=== PATIENT | female | born 1975 | race Two or more races ===

== ENCOUNTER 2020-11-21 11:54 | Inpatient (IN) | payer OTHER ==
[~2020-11-21] VITALS: Ht 165.1 cm; Wt 50.3 kg
--- NOTE | 2020-11-21 12:16 | NUR ---
RT Pt was brought into ER trached and on mechanical ventilation with noted settings. Vent is plugged into red outlet with spare trach by bedside. No SOB or respiratory distress noted at this time. Addendum: 11/21/20 at 1434 by DEVAN PEARSON RT Amended: Links added.
--- NOTE | 2020-11-21 12:42 | NUR ---
zhane, from HD center, came due to hypotension and c/o abd pain. PT AAOX3, VSS. PLACED ON FUEL AGENT, SB. PLACED ON VENT, PT BRANDI WELL. NO RESP DISTRESS NOTED. PT SEEN & EVAL'D BY DR. HOANG. WILL CONT TO MONITOR.
[2020-11-21 13:10] LABS: BASOPHILS % (AUTO) 0.1 % (0.0-2.0); HEMATOCRIT 25 % (33-45); HEMOGLOBIN 8.3 g/dL (11.5-14.8); LYMPHOCYTES # (AUTO) 0.4 K/uL (0.8-4.8); LYMPHOCYTES % (AUTO) 6.2 % (20.0-44.0); MEAN CORPUSCULAR HGB CONC 34 g/dl (31.0-36.0); MEAN CORPUSCULAR VOLUME 97 fL (82-100); MONOCYTES # (AUTO) 0.3 K/uL (0.1-1.30); MONOCYTES % (AUTO) 4.7 % (2.0-12.0); NEUTROPHILS # (AUTO) 5.6 K/uL (1.8-8.9); PLATELET COUNT (AUTO) 119 K/uL (150-450); RED BLOOD CELL COUNT(AUTO) 2.56 MIL/uL (4.0-5.2); WHITE BLOOD COUNT (AUTO) 6.3 K/uL (4.3-11.0)
[2020-11-21] MEDS ORDERED: FOLI0.8T23 GT (13:21)
[2020-11-21] MEDS ORDERED: MELA5TAB GT (13:21)
[2020-11-21] MEDS ORDERED: NUT.237L67 GT (13:21)
[2020-11-21] MEDS ORDERED: NA P133E RC (13:21)
[2020-11-21] MEDS ORDERED: ASCO-352 GT (13:21)
[2020-11-21] MEDS ORDERED: OMEP40CA21 GT (13:21)
[2020-11-21] MEDS ORDERED: IPRA3AMP23 IH ×2 (13:21)
[2020-11-21] MEDS ORDERED: PRED2.5T GT (13:21)
[2020-11-21] MEDS ORDERED: SERT50TA GT (13:21)
[2020-11-21] MEDS ORDERED: AMLO-213 GT (13:21)
[2020-11-21] MEDS ORDERED: DOCU-141 GT (13:21)
[2020-11-21] MEDS ORDERED: BISA10SU11 RC (13:21)
[2020-11-21] MEDS ORDERED: HYDR-4076 GT (13:21)
[2020-11-21] MEDS ORDERED: LEVE100S GT (13:21)
[2020-11-21] MEDS ORDERED: EPOE4000 SQ (13:21)
[2020-11-21] MEDS ORDERED: ZINC1CAP3 GT (13:21)
[2020-11-21] MEDS ORDERED: ATOR10TA GT (13:21)
[2020-11-21] MEDS ORDERED: FERR300L GT (13:21)
[2020-11-21] MEDS ORDERED: LEVO150T8 GT (13:21)
[2020-11-21] MEDS ORDERED: CARV25TA2 GT (13:21)
[2020-11-21] MEDS ORDERED: HYDR200T81 GT (13:21)
[2020-11-21] MEDS ORDERED: ACET-2605 GT (13:21)
[2020-11-21] MEDS ORDERED: CHLO473M5 MM (13:21)
[2020-11-21] MEDS ORDERED: SENN-261 GT (13:21)
[2020-11-21] MEDS ORDERED: MAGN400O6 GT (13:21)
[2020-11-21] MEDS ORDERED: QUET25TA GT (13:21)
[2020-11-21 13:53] LABS: ALBUMIN 1.7 g/dL (3.4-5.0); BILIRUBIN,DIRECT 0.1 mg/dL (0.0-0.2); BILIRUBIN,TOTAL 0.2 mg/dL (0.2-1.0); CALCIUM, SERUM 8.8 mg/dL (8.5-10.1); CREATININE 2.1 mg/dL (0.6-1.3); POTASSIUM 3.2 mmol/L (3.5-5.1)
--- NOTE | 2020-11-21 14:30 | NUR ---
PT BACK FROM CT. PT RESTING, EYES CLOSED BUT EASILY AWAKEN BY VERBAL STIMULI. RR EVEN & UNLABORED. DENIES CP, SOB, DIZZINESS, N/V AT THIS TIME. WILL CONT TO MONITOR.
--- NOTE | 2020-11-21 15:19 | NUR ---
NURSING SUP CALLED FOR TELE BED.
--- NOTE | 2020-11-21 15:21 | NUR ---
Note jordyn in EDM - 11/21/20 at 1521 by ARCADIO Patient discharged to home in stable condition. Written and verbal after care instructions given. Patient verbalizes understanding of instruction. IV removed. Catheter intact and site benign. Pressure and 4x4 applied to site. No bleeding noted.
[2020-11-21] MEDS ORDERED: MAG HYDROX/AL HYDROX/SIMETH 30 ML UDC PO PRN (15:30)
[2020-11-21] MEDS ORDERED: Z GUARD REMEDY 2 OZ OINT TP PRN (15:30)
[2020-11-21] MEDS ORDERED: MAGNESIUM HYDROXIDE 30 ML UDC PO PRN (15:30)
[2020-11-21] MEDS ORDERED: VANCOMYCIN 1 GM in IV D5W 250 ML IV ONE (15:30)
[2020-11-21] MEDS ORDERED: MEROPENEM 1 G in IV NS 0.9% 100 ML IV ONE (15:30)
--- NOTE | 2020-11-21 17:54 | NUR ---
room [facility]
[2020-11-21] MEDS ORDERED: LEVETIRACETAM SOL (5 ML) 100 MG/ML UDC GT SCH (18:00)
--- NOTE | 2020-11-21 18:52 | NUR ---
REPORT GIVEN TO GELACIO ELIZALDE FOR QUANG.
--- NOTE | 2020-11-21 19:37 | NUR ---
RT NOTE PT TRANSPORTED TO ROOM 102. PT IS TRACH'D VIA SHILEY 6 CUFFED TRACH TUBE AND ON MECHANICAL VENTILATION ON ORDERED SETTINGS. TRACH IS SECURE AND PATENT. VENT IS PLUGGED INTO RED OUTLET W BMV AND SPARE TRACH AT HOB. ALARMS ARE SET AND AUDIBLE. NO RESP DISTRESS NOTED @ THIS TIME.
[2020-11-21 20:17] VITALS: BP 100/40
[2020-11-21] MEDS: PIPERACILLIN /TAZOBACTAM 2.25 G in IV D5W 50 ML IV SCH (20:27)
[2020-11-21] MEDS: NEPRO 1,000 ML BOTTLE GT PRN (21:42)
[2020-11-21] MEDS: ATORVASTATIN 10 MG TABLET GT SCH (21:45)
[2020-11-21] MEDS: QUETIAPINE FUMARATE 25 MG TABLET GT SCH (21:45)
[2020-11-22] VITALS: BP 98/50
[2020-11-22] MEDS: PIPERACILLIN /TAZOBACTAM 2.25 G in IV D5W 50 ML IV SCH ×5 (00:40→23:02)
[2020-11-22 04:00] VITALS: BP 101/48
--- NOTE | 2020-11-22 07:36 | NUR ---
TELE NURSE NOTE RECEIVE REPORT FROM PRINT GRAPHIC DESIGNER NURSE. PATIENT IS SLEEPING AND COMFORTABLE. NO SIGN OF DISTRESS. WILL BE EVALUATING REMOVAL OF RETRAIN. TUBE FEEDING RUNNING AT 5OML/HR. TRACH WAS SUCTIONED AND CLEAR OF SPUTUM. PATIENT REQUEST MEDICATION FOR ANXIETY. WILL CHECK MEDICATION LIST AND ORDERS. BED WAS PUT IN LOWEST POSITION WITH 3 SIDE RAIL UP.
[2020-11-22 08:00] VITALS: BP 97/45
[2020-11-22 08:25] LABS: BASOPHILS % (AUTO) 0.3 % (0.0-2.0); EOSINOPHILS % (AUTO) 0.3 % (0.0-6.0); HEMATOCRIT 22 % (33-45); HEMOGLOBIN 7.6 g/dL (11.5-14.8); LYMPHOCYTES # (AUTO) 0.7 K/uL (0.8-4.8); LYMPHOCYTES % (AUTO) 10.5 % (20.0-44.0); MEAN CORPUSCULAR HGB CONC 34 g/dl (31.0-36.0); MEAN CORPUSCULAR VOLUME 95 fL (82-100); MONOCYTES # (AUTO) 0.4 K/uL (0.1-1.30); MONOCYTES % (AUTO) 6.3 % (2.0-12.0); NEUTROPHILS # (AUTO) 5.8 K/uL (1.8-8.9); NEUTROPHILS % (AUTO) 82.6 % (43.0-81.0); PLATELET COUNT (AUTO) 133 K/uL (150-450); RED BLOOD CELL COUNT(AUTO) 2.37 MIL/uL (4.0-5.2); WHITE BLOOD COUNT (AUTO) 7.1 K/uL (4.3-11.0)
[2020-11-22 08:40] LABS: ALBUMIN 1.6 g/dL (3.4-5.0); BILIRUBIN,TOTAL 0.2 mg/dL (0.2-1.0); CALCIUM, SERUM 8.3 mg/dL (8.5-10.1); CREATININE 2.5 mg/dL (0.6-1.3); MAGNESIUM 2.1 mg/dL (1.8-2.4); PHOSPHORUS 2.3 mg/dL (2.5-4.9)
[2020-11-22 08:44] LABS: POTASSIUM 2.8 mmol/L (3.5-5.1)
[2020-11-22] MEDS: HYDROXYCHLOROQUINE 200 MG TABLET GT SCH (09:18)
[2020-11-22] MEDS: FERROUS SULFATE UDC 300 MG/5 ML UDC GT SCH (09:19)
[2020-11-22] MEDS: LEVOTHYROXINE SODIUM 75 MCG TABLET GT SCH (09:19)
[2020-11-22] MEDS: ZINC SULFATE 220 MG CAPSULE GT SCH (09:19)
[2020-11-22] MEDS: SERTRALINE HCL 50 MG TABLET GT SCH (09:19)
[2020-11-22] MEDS: PANTOPRAZOLE 40 MG VIAL IV SCH (09:20)
[2020-11-22] MEDS: POTASSIUM CL. PREMIX PERIPHER. 50 ML IV SCH ×5 (09:22→12:00)
[2020-11-22] MEDS ORDERED: Sodium Phosphate 30 MMOL in IV NS 0.9% 250 ML IV SCH (10:00)
--- NOTE | 2020-11-22 10:18 | NUR ---
TELE NURSE NOTE ALL AM MEDICATION WAS GIVEN. AM CARE PROVIDED. DIALYSIS POSTPONED DUE TO LOW BLOOD PRESSURE AND LOW POTASSIUM LEVEL. DIALYSIS WILL CONTACT VETERINARIAN HELPER TO CONFIRM.
[2020-11-22] MEDS ORDERED: EPOETIN ALFA-EPBX 4,000 UNIT/ML VIAL SQ SCH (10:30)
--- NOTE | 2020-11-22 11:42 | NUR ---
METROPOLITAN EDITOR NOTE PATIENT NEED MULTIPLE IV MEDICATION ADMINISTRATION, UNABLE TO INSERT HL PATIENT IS HARD STICK , PER DR PARISH OK TO INSERT MID LINE, CALLED TO NURSING FISHERY BIOLOGIST STATED THAT WILL CALL PIC LINE NURSE , WILL F\U
[2020-11-22 12:00] VITALS: BP 143/58
--- NOTE | 2020-11-22 12:42 | NUR ---
TELE NURSE NOTE PATIENT ONLY HAVE ONE IV SITE. PATIENT HAVE ORDER FOR 4 DOSES OF POTASSIUM CHLORIDE AND SODIUM PHOSPHATE. POTASSIUM CHLORIDE AND SODIUM PHOSPHATE IS NOT COMPATIBLE TO RUN IN THE SAME IV SITE STATED BY PHARMACY. TWO DOSES OF POTASSIUM CHLORIDE WAS GIVEN. PENNING TO GIVE THE REMAINING TWO DOSES AFTER SODIUM PHOSPHATE FINISH.
[2020-11-22] MEDS ORDERED: ALBUMIN 25% 12.5 GM in PREMIX 1 EA IV PRN (13:00)
--- NOTE | 2020-11-22 14:45 | NUR ---
DELIVERY TECH NOTE Patient has only one IV line, pending Midline insertion, Px aware of missing K dose x 1 since currently Phosphate still running. Asked Px to move K administration for later today or once midline inserted, per Px document as not administered.
[2020-11-22 16:00] VITALS: BP 108/51
--- NOTE | 2020-11-22 17:14 | NUR ---
ELIGIBILITY SPECIALIST NOTE PATIENT RESTING COMFORTABLY AT THIS TIME NO NEEDS MITTENS AT HIS TIME
--- NOTE | 2020-11-22 18:32 | NUR ---
TELE NURSE CLOSING NOTE PATIENT REMAIN STABLE THROUGHOUT THE DAY. PERFORM TRAC SUCTIONING AND ORAL SUCTION NEEDED. PATIENT HAD 2 BOWEL MOVEMENT AND VOIDED X4. PATIENT WAS CLEANED AND REPOSITION PER FACILITY PROTOCOL. BED LINEN WAS CHANGED BY WIND SITE MANAGER. TUBE FEEDING WAS CHANGED. MID LINE WAS PLACED. MITTENS WAS REMOVED. PATIENT REMAIN CO-OPERATIVE AND DID NOT ATTEMPT TO PULL ANY LINES OR TRACHEOSTOMY. PROVIDE COMFORT MEASURE. PLACE BED IN THE LOWEST POSITION WITH HEAD OF THE BED ELEVATED. 3 SIDE RAIL IS UP. CALL LIGHT WITHIN REACH. WILL CONTINUE TO MONITOR AND ENDORSE TO ON COMING NURSE.
[2020-11-22] MEDS: VANCOMYCIN POST DIALYSIS 500MG IV PRN (18:54)
--- NOTE | 2020-11-22 19:30 | NUR ---
RN NOTE RECEIVED PATIENT ON COVID ISOLATION, PATIENT IN BED. A/OX2, ABLE TO MAKE NEEDS KNOWN BY POINTING, ALSO MOUTHS WORD IN CROATIAN. ON OXYGEN VIA MECHANICAL VENT: CHAD #6, SIMV 14, TV 400 FIO2 30, PEEP 5. RESPIRATIONS ARE EVEN AND UNLABORED. NO S/SS OB NOTED. NO S/S PAIN NOTED. EXTERNAL TELE MONITOR READS SINUS RHYTHM. IN NO APPARENT DISTRESS. IV ACCESS IN ROMAN MIDLINE AND RIGHT WRIST PATENT AND SALINE LOCKED. LEFT ARM AV FISTULA. GTUBE IS PRESENT, 10 CC RESIDUAL, FLUSHED WITH NO RESISTANCE, FEEDING RUNNING NEPRO@55ML/HR. BED IS LOW AND LOCKED, HOB ELEVATED IN SEMI FOWLERS, SIDE RAILS UP X3, CALL LIGHT WITHIN REACH. WILL CONTINUE TO MONITOR THROUGHOUT SHIFT.
[2020-11-22 20:00] VITALS: BP 145/64
[2020-11-22] MEDS: QUETIAPINE FUMARATE 25 MG TABLET GT SCH (22:16)
[2020-11-22] MEDS: ATORVASTATIN 10 MG TABLET GT SCH (22:16)
[2020-11-23] VITALS: BP 135/54
[2020-11-23 04:00] VITALS: BP 145/51
[2020-11-23] MEDS: PIPERACILLIN /TAZOBACTAM 2.25 G in IV D5W 50 ML IV SCH ×4 (05:04→23:29)
--- NOTE | 2020-11-23 07:08 | NUR ---
RN NOTE ON COVID ISOLATION, PATIENT RESTING IN BED. A/OX2. REMAINS ON MECHANICAL VENT: NO CHANGES IN SETTINGS. NO RESP DISTRESS. SUCTIONED THICK YELLOW SECRETIONS. NO C/O PAIN. TELE MONITOR READS SINUS RHYTHM. NO DISTRESS. IV ACCESS MAINTAINED IN ROMAN MIDLINE AND RIGHT WRIST. LEFT ARM AV FISTULA. GTUBE RUNNING NEPRO@55ML/HR. BED REMAINS LOW AND LOCKED, HOB ELEVATED IN SEMI FOWLERS, SIDE RAILS UP X3, CALL LIGHT WITHIN REACH. WILL ENDORSE TO ONCOMING SHIFT.
--- NOTE | 2020-11-23 07:30 | NUR ---
IMPROVEMENT DIRECTOR AM NOTE PT IN BED, ASLEEP, RESPONDS TO NAME AND TOUCH, A/OX2. MOUTH WORDS, WITH SHILEY 6 TRACH TO MECHANICAL VENT WITH SETTING FOLLOWS: AC 14 TV 400 FIO2 30 PEEP 5, BREATHING EVEN AND UNLABORED. NO RESP DISTRESS. SINUS RHYTHM HR 62 ON MONITOR, NO SIGNS OF PAIN, IV ACCESS ROMAN MIDLINE AND RIGHT FA BOTH FLUSHES WEL, BOTH SITES CLEAR. LEFT ARM AV FISTULA, THRILL PRESENT, GTUBE PLACEMENT CHECKED, O RESIDUAL, WITH NEPRO@55ML/HR ONGOING, ON 2100 OFF 1500. SEE NURSING FLOWSHEET FOR SKIN ISSUES. FOR WOUND CARE CONSULT. BED LOW AND LOCKED, HOB ELEVATED IN SEMI FOWLERS, SIDE RAILS UP X3, CALL LIGHT WITHIN REACH. WILL CONT TO MONITOR.
[2020-11-23 07:45] LABS: IRON, SERUM 33 ug/dl (50-175); TOTAL IRON BINDING CAPACITY 129 ug/dl (250-450)
[2020-11-23 08:00] VITALS: BP 157/44
[2020-11-23 09:03] LABS: CALCIUM, SERUM 8.2 mg/dL (8.5-10.1)
[2020-11-23 09:17] LABS: POTASSIUM 2.5 mmol/L (3.5-5.1)
[2020-11-23] MEDS: FERROUS SULFATE UDC 300 MG/5 ML UDC GT SCH (09:26)
[2020-11-23] MEDS: PANTOPRAZOLE 40 MG VIAL IV SCH (09:26)
[2020-11-23] MEDS: SERTRALINE HCL 50 MG TABLET GT SCH (09:26)
[2020-11-23] MEDS: ZINC SULFATE 220 MG CAPSULE GT SCH (09:27)
[2020-11-23] MEDS: HYDROXYCHLOROQUINE 200 MG TABLET GT SCH (09:27)
[2020-11-23] MEDS: LEVOTHYROXINE SODIUM 75 MCG TABLET GT SCH (09:27)
--- NOTE | 2020-11-23 09:30 | NUR ---
RN NOTES DUE MEDS GIVEN
[2020-11-23] MEDS: POTASSIUM CHLORIDE 20 MEQ POWDER PACKET GT SCH (10:28)
[2020-11-23 12:00] VITALS: BP 142/61
--- NOTE | 2020-11-23 12:57 | NUR ---
NO INR RECORDED, RN ELENA WILL ORDER INR TODAY, THORACENTESIS WILL BE DONE TOMORROW. RADIOLOGIST HAS LEFT TO ANOTHER HOSPITAL FOR PENDING PROCEDURES
--- NOTE | 2020-11-23 13:00 | NUR ---
RN NOTES DR. KLINE PULMONOLIGIST ORDERED US GUIDED THORACENTESIS LEFT, NON URGENT REQUEST. PER DR. FAN AND US TECH - WILL PERFORM TOMORROW. PHONE CONSENT SIGNED - SAÚL SMART DAUGHTER
[2020-11-23] MEDS ORDERED: EPOETIN ALFA-EPBX 4,000 UNIT/ML VIAL SQ SCH (15:00)
[2020-11-23 16:00] VITALS: BP 145/60
[2020-11-23] MEDS ORDERED: VANCOMYCIN 1 GM in IV D5W 250 ML IV PRN (16:00)
--- NOTE | 2020-11-23 18:49 | NUR ---
VALVE PIPE IRRIGATOR CLOSING NOTE PT IN BED, ASLEEP, RESPONDS TO NAME AND TOUCH, A/OX2. MOUTH WORDS, WITH SHILEY 6 TRACH TO MECHANICAL VENT WITH SETTING FOLLOWS: AC 14 TV 400 FIO2 30 PEEP 5, BREATHING EVEN AND UNLABORED. NO RESP DISTRESS. SINUS RHYTHM HR 64 ON MONITOR, NO SIGNS OF PAIN, IV ACCESS ROMAN MIDLINE AND RIGHT FA BOTH FLUSHES WELL, BOTH SITES CLEAR. LEFT ARM AV FISTULA, THRILL PRESENT, G TUBE PLACEMENT CHECKED, O RESIDUAL, WITH NEPRO@55ML/HR ONGOING, ON 2100 OFF 1500. TURNED AND REPOSITIONED Q 2 HOURS, BED LOW AND LOCKED, HOB ELEVATED IN SEMI FOWLERS, SIDE RAILS UP X3, CALL LIGHT WITHIN REACH. ALL NEEDS MET.WILL ENDORSE TO NEXT SHIFT FOR QUANG
[2020-11-23 20:00] VITALS: BP 154/66
--- NOTE | 2020-11-23 20:00 | NUR ---
RN NOTE RECEIVED ON COVID ISOLATION. IN BED. A/OX2, ABLE TO MAKE NEEDS KNOWN . ON MECHANICAL VENT: CHAD #6, SIMV 14, TV 400 FIO2 30, PEEP 5. RESPIRATIONS ARE EVEN AND UNLABORED. NO S/S SOB NOTED. NO C/O PAIN NOTED. EXTERNAL TELE MONITOR READS SINUS RHYTHM. IN NO APPARENT DISTRESS. IV ACCESS IN ROMAN MIDLINE AND RIGHT WRIST PATENT AND SALINE LOCKED. LEFT ARM AV FISTULA. GTUBE IS PRESENT, NO RESIDUAL, FLUSHED WITH NO RESISTANCE, FEEDING RUNNING NEPRO@55ML/HR. BED IS LOW AND LOCKED, HOB ELEVATED IN SEMI FOWLERS, SIDE RAILS UP X3, CALL LIGHT WITHIN REACH. WILL CONTINUE TO MONITOR THROUGHOUT SHIFT.
[2020-11-23] MEDS: ATORVASTATIN 10 MG TABLET GT SCH (21:14)
[2020-11-23] MEDS: NEPRO 1,000 ML BOTTLE GT PRN (21:14)
[2020-11-23] MEDS: QUETIAPINE FUMARATE 25 MG TABLET GT SCH (21:14)
[2020-11-24] VITALS: BP 161/79
--- NOTE | 2020-11-24 02:52 | NUR ---
RN NOTE INFORMED IMMUNOLOGY SPECIALIST RODNEY REID DNP THAT PATIENT BP IS 161/79 HR 63. THIS IS A HD PATIENT, GET HYPOTENSIVE WITH HD AND IS SCHEDULED FOR HD TOMORROW. ALL BP MEDS ON THE MED RECON HAVE BEEN HELD AND THERE ARE NO PRN ORDERS. PLACED ORDER FOR HYDRALAZINE 10MG WITH CARRY OUT ORDER.
[2020-11-24] MEDS ORDERED: hydrALAZINE HCL IV 20 MG VIAL IV ONE (03:00)
[2020-11-24 04:00] VITALS: BP 164/67
[2020-11-24] MEDS: PIPERACILLIN /TAZOBACTAM 2.25 G in IV D5W 50 ML IV SCH ×2 (05:23→11:56)
--- NOTE | 2020-11-24 06:26 | NUR ---
RN NOTE INFORMED DIRECTOR SURGICAL RODNEY REID DNP THAT BP HAS NOT CHANGED SINCE GIVING HYDRALAZINE 10MG IV ONCE. BP IS 164/67 HR 64. INFORMED DNP THAT PATIENT IS SCHEDULED FOR HD TODAY. DNP STATES HE DOES NOT WANT TO GIVE MORE BP MEDS BECAUSE HE DOES NOT WANT HER TO BECOME HYPOTENSIVE, WHICH IS ALSO REASON FOR ADMISSION WITH HD. NO NEW ORDERS GIVEN AT THIS TIME.
--- NOTE | 2020-11-24 07:16 | NUR ---
RN NOTE ON COVID ISOLATION, RESTING IN BED. A/OX2. REMAINS ON MECHANICAL VENT: NO CHANGES IN SETTINGS. NO RESP DISTRESS. SUCTIONED THICK YELLOW SECRETIONS. NO C/O PAIN. TELE MONITOR READS SINUS RHYTHM/ SINUS VIKTOR. NO DISTRESS. IV ACCESS MAINTAINED IN ROMAN MIDLINE AND RIGHT WRIST. LEFT ARM AV FISTULA. GTUBE RUNNING NEPRO@55ML/HR. BED REMAINS LOW AND LOCKED, HOB ELEVATED IN SEMI FOWLERS, SIDE RAILS UP X3, CALL LIGHT WITHIN REACH. WILL ENDORSE TO ONCOMING SHIFT.
--- NOTE | 2020-11-24 07:30 | NUR ---
KNIFER UP AM NOTE PT IN BED, ASLEEP, RESPONDS TO NAME AND TOUCH, A/OX2. MOUTH WORDS, WITH SHILEY 6 TRACH TO MECHANICAL VENT WITH SETTING FOLLOWS: AC 14 TV 400 FIO2 30 PEEP 5, BREATHING EVEN AND UNLABORED. NO RESP DISTRESS. SINUS RHYTHM HR 66 ON MONITOR, NO SIGNS OF PAIN, IV ACCESS ROMAN MIDLINE AND RIGHT FA BOTH FLUSHES WELL, BOTH SITES CLEAR. LEFT ARM AV FISTULA, THRILL PRESENT, GTUBE PLACEMENT CHECKED, O RESIDUAL, WITH NEPRO@55ML/HR ONGOING, ON 2100 OFF 1500. SEE NURSING FLOWSHEET FOR SKIN ISSUES. FOR WOUND CARE CONSULT. BED LOW AND LOCKED, HOB ELEVATED IN SEMI FOWLERS, SIDE RAILS UP X3, CALL LIGHT WITHIN REACH. WILL CONT TO MONITOR.
--- NOTE | 2020-11-24 07:58 | NUR ---
RT PATIENT REC'D TRACHED ON [facility] VENT WITH ORDERED SETTINGS BRANDI WELL. ALARMS CHECKED + AUDIBLE. CUFF CHECKED WHOLESALE AGRONOMIST. AMBU BAG AT [facility]. PATIENT IN NO DISTRESS AT THIS TIME. Addendum: 11/24/20 at 1604 by CORY WEST RT Amended: Links added.
[2020-11-24 08:00] VITALS: BP 166/64
--- NOTE | 2020-11-24 08:37 | NUR ---
WOUND CARE CONSULT: PT PRESENTS WITH DRY SCAB TO LEFT 5TH TOE (NO ERYTHEMA, TENDERNESS OR DRAINAGE) AND UNSTAGEABLE PRESSURE ULCER TO SACRUM, PRESENT ON ADMISSION. RECOMMENDATIONS MADE FOR SKIN PROTECTION AND WOUND CARE. DISCUSSED WITH NURSING STAFF. PT DEMONSTRATES ABILITY TO ASSIST WITH TURNING AND REPOSITIONING IN BED. SURGICAL CONSULT TO BE MADE FOR SACRAL WOUND. MD IN AGREEMENT WITH PLAN OF CARE. Addendum: 11/24/20 at 0842 by IRENA DE DIOS CORRECTION: DRY SCAB IS ON RT 5TH TOE. Addendum: 11/24/20 at [address] DONIS POST NOTIFIED OF SURGICAL CONSULT REQUEST FOR SACRAL WOUND.
[2020-11-24] MEDS: FERROUS SULFATE UDC 300 MG/5 ML UDC GT SCH (08:53)
[2020-11-24] MEDS: PANTOPRAZOLE 40 MG VIAL IV SCH (08:53)
[2020-11-24] MEDS: POTASSIUM CHLORIDE 20 MEQ POWDER PACKET GT SCH (08:54)
[2020-11-24] MEDS: SERTRALINE HCL 50 MG TABLET GT SCH (08:54)
[2020-11-24] MEDS: LEVOTHYROXINE SODIUM 75 MCG TABLET GT SCH (08:54)
[2020-11-24] MEDS: ZINC SULFATE 220 MG CAPSULE GT SCH (08:54)
[2020-11-24] MEDS: HYDROXYCHLOROQUINE 200 MG TABLET GT SCH (08:54)
--- NOTE | 2020-11-24 09:30 | NUR ---
RN NOTES DUE MEDS GIVEN
[2020-11-24] MEDS: DAKINS QUARTER STRENGTH (0.125%) 480 ML BOTTLE TOP SCH (10:03)
--- NOTE | 2020-11-24 11:53 | NUR ---
RN NOTES PER [facility], OK TO GIVE VANCO IV VANCO TROUGH ON 11/23/20 WAS 21
[2020-11-24 12:00] VITALS: BP 161/73
[2020-11-24] MEDS: VANCOMYCIN POST DIALYSIS 500MG IV PRN (12:26)
--- NOTE | 2020-11-24 14:05 | NUR ---
RN NOTES S/P US GUIDED THORACENTESIS, 760 ML OUTPUT. SPECIMEN SENT TO LAB HANANE ESPINOZA AWARE OF PT'S SBP >160. NO NEW ORDERS RECEIVED.
[2020-11-24] MEDS ORDERED: GENTAMICIN 120 MG in IV D5W 100 ML IV ONE (15:00)
[2020-11-24 16:00] VITALS: BP 165/70
--- NOTE | 2020-11-24 18:46 | NUR ---
MANAGER OF PLANNING CLOSING NOTE PT IN BED, ASLEEP, RESPONDS TO NAME AND TOUCH, A/OX2. MOUTH WORDS, WITH SHILEY 6 TRACH TO MECHANICAL VENT WITH SETTING FOLLOWS: AC 14 TV 400 FIO2 30 PEEP 5, BREATHING EVEN AND UNLABORED. NO RESP DISTRESS. SINUS RHYTHM HR 69 ON MONITOR, NO SIGNS OF PAIN, IV ACCESS ROMAN MIDLINE AND RIGHT FA BOTH FLUSHES WELL, BOTH SITES CLEAR. LEFT ARM AV FISTULA, THRILL PRESENT, G TUBE PLACEMENT CHECKED, O RESIDUAL, WITH NEPRO@55ML/HR ONGOING, ON 2100 OFF 1500. TURNED AND REPOSITIONED Q 2 HOURS, BED LOW AND LOCKED, HOB ELEVATED IN SEMI FOWLERS, SIDE RAILS UP X3, CALL LIGHT WITHIN REACH. ALL NEEDS MET.WILL ENDORSE TO NEXT SHIFT FOR QUANG
--- NOTE | 2020-11-24 19:40 | NUR ---
CENTRAL SUPPLY MANAGER OPENING NOTE PT IN BED, A/O X2, RESPONDS TO NAME AND TOUCH, MOUTH WORDS IN JAPANESE. SHILEY 6 TRACH TO MECHANICAL VENT WITH SETTING FOLLOWS: AC 14 TV 400 FIO2 30 PEEP 5, BREATHING EVEN AND UNLABORED. NO RESP DISTRESS NOTED. SINUS RHYTHM ON TELE MONITOR, DENIES ANY PAIN. IV ACCESS (R) UA MIDLINE, (R) FA BOTH PATENT WITH CLEAN AND DRY DRESSING. LEFT ARM AV FISTULA, THRILL PRESENT, G TUBE PLACEMENT VERIFIED BY AUSCULTATION AND , PATENT WITH 0 RESIDUAL NOTED, NEPRO RUNNING @55ML/HR X18HRS, ON @ 2100 OFF 1500. SAFETY MEASURES IMPLEMENTED: BED LOCKED IN LOWEST POSITION, HOB ELEVATED IN SEMI FOWLERS, SIDE RAILS UP X3, CALL LIGHT WITHIN REACH. NO ACUTE DISTRESS NOTED AT THIS TIME.
[2020-11-24 20:00] VITALS: BP 134/61
[2020-11-24] MEDS: ACETAMINOPHEN 325 MG TABLET PO PRN (21:19)
[2020-11-24] MEDS: QUETIAPINE FUMARATE 25 MG TABLET GT SCH (21:19)
[2020-11-24] MEDS: ATORVASTATIN 10 MG TABLET GT SCH (21:19)
[2020-11-25] VITALS: BP 131/64
[2020-11-25] MEDS: NEPRO 1,000 ML BOTTLE GT PRN (03:59)
[2020-11-25 04:00] VITALS: BP 123/52
[2020-11-25 06:43] LABS: BASOPHILS % (AUTO) 0.5 % (0.0-2.0); EOSINOPHILS % (AUTO) 0.2 % (0.0-6.0); HEMATOCRIT 23 % (33-45); HEMOGLOBIN 7.7 g/dL (11.5-14.8); LYMPHOCYTES # (AUTO) 0.8 K/uL (0.8-4.8); MEAN CORPUSCULAR HGB CONC 34 g/dl (31.0-36.0); MEAN CORPUSCULAR VOLUME 97 fL (82-100); MONOCYTES # (AUTO) 0.5 K/uL (0.1-1.30); MONOCYTES % (AUTO) 12.1 % (2.0-12.0); NEUTROPHILS # (AUTO) 2.8 K/uL (1.8-8.9); NEUTROPHILS % (AUTO) 68.2 % (43.0-81.0); PLATELET COUNT (AUTO) 90 K/uL (150-450); RED BLOOD CELL COUNT(AUTO) 2.35 MIL/uL (4.0-5.2); WHITE BLOOD COUNT (AUTO) 4.1 K/uL (4.3-11.0)
--- NOTE | 2020-11-25 06:54 | NUR ---
NEUROSURGERY RESEARCH DIRECTOR CLOSING NOTE PT IN BED, A/O X2, RESPONDS TO NAME AND TOUCH, MOUTH WORDS IN WOLOF. SHILEY 6 TRACH TO MECHANICAL VENT WITH SETTING FOLLOWS: AC 14 TV 400 FIO2 30 PEEP 5, BREATHING EVEN AND UNLABORED. NO RESP DISTRESS NOTED. SINUS RHYTHM ON TELE MONITOR, DENIES ANY PAIN. IV ACCESS (R) UA MIDLINE, (R) FA BOTH PATENT WITH CLEAN AND DRY DRESSING. LEFT ARM AV FISTULA, THRILL PRESENT, G TUBE PLACEMENT VERIFIED BY AUSCULTATION AND , PATENT WITH 0 RESIDUAL NOTED, NEPRO RUNNING @55ML/HR X18HRS, ON @ 2100 OFF 1500. PT KEPT CLEAN AND DRY, WOUND CARE COMPLETED ORDERED. ALL NEEDS AND ORDERS MET THROUGHOUT SHIFT. SUCTIONED PRN. SAFETY MEASURES IMPLEMENTED: BED LOCKED IN LOWEST POSITION, HOB ELEVATED IN SEMI FOWLERS, SIDE RAILS UP X3, CALL LIGHT WITHIN REACH. NO ACUTE DISTRESS NOTED AT THIS TIME. WILL ENDORSE TO MORNING SHIFT RN
[2020-11-25 07:28] LABS: CREATININE 1.9 mg/dL (0.6-1.3); PHOSPHORUS 2.1 mg/dL (2.5-4.9); POTASSIUM 3.6 mmol/L (3.5-5.1)
--- NOTE | 2020-11-25 07:30 | NUR ---
RN NOTE PATIENT OBSERVED IN BED, AWAKE, ALERT AND ORIENTED X4 ABLE TO VERBALIZE NEEDS, ON TRACHEOSTOMY WITH MECHANICAL VENTILATOR, WITH LEFT AV FISTULA, RIGHT UPPER MIDLINE PATENT INFUSING WELL, SAFETY MEASURE OBSERVED, BED WHEELS LOCK, CALL LIGHT WITHIN REACH, WILL CONTINUE TO MONITOR.
[2020-11-25 08:00] VITALS: BP 123/62
[2020-11-25] MEDS: FERROUS SULFATE UDC 300 MG/5 ML UDC GT SCH (08:19)
[2020-11-25] MEDS: SERTRALINE HCL 50 MG TABLET GT SCH (08:40)
[2020-11-25] MEDS: HYDROXYCHLOROQUINE 200 MG TABLET GT SCH (08:40)
[2020-11-25] MEDS: LEVOTHYROXINE SODIUM 75 MCG TABLET GT SCH (08:40)
[2020-11-25] MEDS: PANTOPRAZOLE 40 MG/PACK PACK GT SCH (08:40)
[2020-11-25] MEDS: POTASSIUM CHLORIDE 20 MEQ POWDER PACKET GT SCH (08:40)
[2020-11-25] MEDS: ZINC SULFATE 220 MG CAPSULE GT SCH (08:40)
[2020-11-25] MEDS: DAKINS QUARTER STRENGTH (0.125%) 480 ML BOTTLE TOP SCH (08:41)
[2020-11-25] MEDS ORDERED: VANC1VIA34 XX (09:11)
[2020-11-25] MEDS ORDERED: RXGEN XX (09:11)
[2020-11-25 12:00] VITALS: BP 121/62
[2020-11-25 12:34] LABS: LYMPHOCYTES % (MANUAL) 19 % (16-48); MONOCYTES % (MANUAL) 11 % (0-11.0); NEUTROPHILS % (MANUAL) 70 (42-76)
[2020-11-25] MEDS ORDERED: Sodium Phosphate 30 MMOL in IV NS 0.9% 250 ML IV SCH (15:00)
[2020-11-25] MEDS ORDERED: NEUTRA PHOS 1 POWD.PACKET GT ONE (15:30)
[2020-11-25 16:00] VITALS: BP 119/64
--- NOTE | 2020-11-25 18:42 | NUR ---
RN NOTE PATIENT OBSERVED IN BED, AWAKE, ALERT AND ORIENTED X3 ABLE TO VERBALIZE NEEDS, ON TRACHEOSTOMY WITH MECHANICAL VENTILATOR, WITH LEFT AV FISTULA, MOUTHING WORDS, PER AUTOMOBILE TECHNICIAN FOR DISCHARGE TOMORROW ON AM, RIGHT UPPER MIDLINE PATENT INFUSING WELL, ON GT FEEDING TOLERATED WELL WITH 0 RESIDUAL REPLASE PHOSPATE ORDERED. ON TELE MONITOR SR HEART RATE OF 70, SAFETY MEASURE OBSERVED, BED WHEELS LOCK, CALL LIGHT WITHIN REACH, WILL CONTINUE TO MONITOR. WILL ENDORSE TO NOC SHIFT.
--- NOTE | 2020-11-25 19:01 | NUR ---
RN NOTE LABORATORY NOTIFIED PATIENT HAS NO ORDER FOR BODY FLUID ANALYSIS NEEDS AN ORDER, ORDERS NOTED AND CARRIED OUT.
--- NOTE | 2020-11-25 19:40 | NUR ---
CONSTRUCTION EQUIPMENT MECHANIC OPENING NOTE PT IN BED, A/O X2, RESPONDS TO NAME AND TOUCH, MOUTH WORDS IN KYRGYZ. SHILEY 6 TRACH TO MECHANICAL VENT WITH SETTING FOLLOWS: AC 14 TV 400 FIO2 30 PEEP 5, BREATHING EVEN AND UNLABORED. NO RESP DISTRESS NOTED. SINUS RHYTHM ON TELE MONITOR, DENIES ANY PAIN. IV ACCESS (R) UA MIDLINE, (R) FA BOTH PATENT WITH CLEAN AND DRY DRESSING. SUCTIONED PT FOR AUDIBLE SECRETIONS. LEFT ARM AV FISTULA, THRILL PRESENT, G TUBE PLACEMENT VERIFIED BY AUSCULTATION AND , PATENT WITH 10 cc RESIDUAL NOTED, NEPRO RUNNING @55ML/HR X18HRS, ON @ 2100 OFF 1500. SAFETY MEASURES IMPLEMENTED: BED LOCKED IN LOWEST POSITION, HOB ELEVATED IN SEMI FOWLERS, SIDE RAILS UP X3, CALL LIGHT WITHIN REACH. NO ACUTE DISTRESS NOTED AT THIS TIME.
[2020-11-25 20:00] VITALS: BP 126/61
[2020-11-25] MEDS: ACETAMINOPHEN 325 MG TABLET PO PRN (21:15)
[2020-11-25] MEDS: QUETIAPINE FUMARATE 25 MG TABLET GT SCH (21:15)
[2020-11-25] MEDS: ATORVASTATIN 10 MG TABLET GT SCH (21:15)
--- NOTE | 2020-11-25 21:20 | NUR ---
RN NOTE PRN DOSE OF TYLENOL 650 MG PO GIVEN FOR PAIN LEVEL 3/10. COOLING MEASURES IMPLEMENTED FOR TEMP 99.5. NO OTHER DISTRESS NOTED AT THIS TIME
[2020-11-25] MEDS: JEVITY 1.2 CAL 1,000 ML BOTTLE GT PRN (22:38)
[2020-11-26] VITALS: BP 124/62
[2020-11-26 04:00] VITALS: BP 139/66
--- NOTE | 2020-11-26 06:23 | NUR ---
LARD MAKER CLOSING NOTE PT IN BED, A/O X2, RESPONDS TO NAME AND TOUCH, MOUTH WORDS IN UZBEK. SHILEY 6 TRACH TO MECHANICAL VENT WITH SETTING FOLLOWS: AC 14 TV 400 FIO2 30 PEEP 5, BREATHING EVEN AND UNLABORED. NO RESP DISTRESS NOTED. SINUS RHYTHM ON TELE MONITOR, DENIES ANY PAIN AT THIS TIME. IV ACCESS (R) UA MIDLINE, (R) FA BOTH PATENT WITH CLEAN AND DRY DRESSING. LEFT ARM AV FISTULA, THRILL PRESENT, G TUBE PLACEMENT VERIFIED BY AUSCULTATION AND , PATENT WITH 10 ML RESIDUAL NOTED, JEVITY 1.2 RUNNING @55ML/HR X18HRS, ON @ 2100 OFF 1500. PT KEPT CLEAN AND DRY, WOUND CARE COMPLETED ORDERED. ALL NEEDS AND ORDERS MET THROUGHOUT SHIFT. PATIENT SUCTIONED PRN. SAFETY MEASURES IMPLEMENTED: BED LOCKED IN LOWEST POSITION, HOB ELEVATED IN SEMI FOWLERS, SIDE RAILS UP X3, CALL LIGHT WITHIN REACH. NO ACUTE DISTRESS NOTED AT THIS TIME. WILL ENDORSE TO MORNING SHIFT RN
--- NOTE | 2020-11-26 07:23 | NUR ---
PACKAGE MAKER OPENING NOTE Pt received in bed, a/o x3, mouths words in romansh, but understands [place]. Pt is on a trach with vent settings AC 14 TV 400 FIO2 30 PEEP 5. Breathing is even and unlabored with no s/sx of respiratory distress, or pain noted at this time. Pt has R UA midline, R FA 20g, and L UA arm AV fistula. Pt has a G-tube running Jevity 1.2 2 55ml/hr x 18hrs, started @2100 to be turned off @1500. Safety measures in place with bed in lowest, locked position, and call light within reach.
[2020-11-26 08:00] VITALS: BP 117/83
[2020-11-26] MEDS: POTASSIUM CHLORIDE 20 MEQ POWDER PACKET GT SCH (08:14)
[2020-11-26] MEDS: FERROUS SULFATE UDC 300 MG/5 ML UDC GT SCH (08:14)
[2020-11-26] MEDS: LEVOTHYROXINE SODIUM 75 MCG TABLET GT SCH (08:15)
[2020-11-26] MEDS: SERTRALINE HCL 50 MG TABLET GT SCH (08:15)
[2020-11-26] MEDS: ZINC SULFATE 220 MG CAPSULE GT SCH (08:15)
[2020-11-26] MEDS: HYDROXYCHLOROQUINE 200 MG TABLET GT SCH (08:15)
[2020-11-26] MEDS: PANTOPRAZOLE 40 MG/PACK PACK GT SCH (08:15)
[2020-11-26] MEDS: DAKINS QUARTER STRENGTH (0.125%) 480 ML BOTTLE TOP SCH (08:16)
[2020-11-26] MEDS: ONDANSETRON HCL/PF 4 MG/2 ML VIAL IVP PRN (08:49)
[2020-11-26 12:00] VITALS: BP 154/70
[2020-11-26] MEDS ORDERED: Sodium Phosphate 30 MMOL in IV NS 0.9% 250 ML IV SCH (13:00)
[2020-11-26 16:00] VITALS: BP 141/71
--- NOTE | 2020-11-26 18:49 | NUR ---
IMAGING SCHEDULER CLOSING NOTES Pt resting comfortably in bed in semi-fowlers position with trach S#6 AC 14 TV 400 FiO2 30% with PEEP of 5 and O2 saturation at 100%. Pt is on a tele monitor SR 70. Pt had bm x4 and urinated twice on shift. Pt has a sacral wound, performed wound care per MD order. Pt should receive feeding of Jevity 1.2 @70mol/hr x18hrs @2100. Will endorse to next shift. Pt has an right upper arm midline gauge 18, right forearm gauge 20, and left upper arm fistula. Pt received dialysis with 1000ml fluid removed. Safety measures in place with bed in lowest locked position, call light within reach, and all needs attended at this time.
--- NOTE | 2020-11-26 19:45 | NUR ---
NUB CARD TENDER OPENING NOTE PT IN BED, A/O X2, RESPONDS TO NAME AND TOUCH, MOUTH WORDS IN SETSWANA. SHILEY 6 TRACH TO MECHANICAL VENT WITH SETTING FOLLOWS: AC 14 TV 400 FIO2 30 PEEP 5, BREATHING EVEN AND UNLABORED. NO RESP DISTRESS NOTED. SINUS RHYTHM ON TELE MONITOR, DENIES ANY PAIN. IV ACCESS (R) UA MIDLINE, (R) FA BOTH PATENT WITH CLEAN AND DRY DRESSING. LEFT ARM AV FISTULA, THRILL PRESENT, G TUBE PLACEMENT VERIFIED BY AUSCULTATION AND , PATENT WITH 0 cc RESIDUAL NOTED, JEVITY 1.2 WITH GOAL @ 70ML/HR X18HRS, ON @ 2100 OFF 1500. SAFETY MEASURES IMPLEMENTED: BED LOCKED IN LOWEST POSITION, HOB ELEVATED IN SEMI FOWLERS, SIDE RAILS UP X3, CALL LIGHT WITHIN REACH. NO ACUTE DISTRESS NOTED AT THIS TIME.
[2020-11-26] MEDS: GENTAMICIN 100 MG in IV D5W 50 ML IV PRN (19:53)
[2020-11-26 20:00] VITALS: BP 116/54
[2020-11-26] MEDS: ATORVASTATIN 10 MG TABLET GT SCH (21:13)
[2020-11-26] MEDS: QUETIAPINE FUMARATE 25 MG TABLET GT SCH (21:13)
[2020-11-26] MEDS: JEVITY 1.2 CAL 1,000 ML BOTTLE GT PRN (22:54)
[2020-11-27] VITALS (10 sets, daily range): BP systolic 122–153; BP diastolic 63–72
--- NOTE | 2020-11-27 06:25 | NUR ---
RN NOTE PT. TRANSFERRED TO [facility] BED 327-1 VIA ACLS PROTOCOL ON HOSPITAL BED. REPORT GIVEN TO LITTLE BRIZUELA. ALL PT BELONGINGS ACCOUNTED FOR. ALL MEDICATIONS, TUBE FEEDING AND PT CHART TRANSFERRED WITH PT. LIDA RT ACCOMPANIED THROUGH TRANSPORT, NO SOB OR RESP. DISTRESS NOTED.
--- NOTE | 2020-11-27 06:26 | NUR ---
Patient arrived to unit at 0610 accompanied by 3 RNs and RT. Initial VS 153/70, HR 69, Temp 97.9, RR 22, O2 sat 100%. Patient is A&Ox2 to self and place. No signs of distress. Denies pain or discomfort. On mechanical ventilation. Hooked up to GT feeding at 70cc/hr, GT placement checked and flushed. IRMA AVF +bruit and thrill. Seen to have generalized edema. ROMAN midline flushed and patent. Put on tele monitor -SR. Oriented to unit and protocols. Bed in lowest position and locked, HOB elevated to 45 degrees. All safety measures in place.
--- NOTE | 2020-11-27 07:36 | NUR ---
RN OPENING NOTES Patient seen comfortably lying in bed, no SOB, breathing even and unlabored, no apparent distress noted, no grimacing. Safety precautions maintained, brakes locked, side rails up X 2, call light left within reach, will monitor closely for any changes.
[2020-11-27] MEDS: FERROUS SULFATE UDC 300 MG/5 ML UDC GT SCH (09:07)
[2020-11-27] MEDS: POTASSIUM CHLORIDE 20 MEQ POWDER PACKET GT SCH (09:08)
[2020-11-27] MEDS: SERTRALINE HCL 50 MG TABLET GT SCH (09:08)
[2020-11-27] MEDS: LEVOTHYROXINE SODIUM 75 MCG TABLET GT SCH (09:08)
[2020-11-27] MEDS: PANTOPRAZOLE 40 MG/PACK PACK GT SCH (09:08)
[2020-11-27] MEDS: HYDROXYCHLOROQUINE 200 MG TABLET GT SCH (09:08)
[2020-11-27] MEDS: ZINC SULFATE 220 MG CAPSULE GT SCH (09:08)
[2020-11-27] MEDS: DAKINS QUARTER STRENGTH (0.125%) 480 ML BOTTLE TOP SCH (09:48)
--- NOTE | 2020-11-27 18:50 | NUR ---
RN CLOSING NOTES Patient in bed, AO X 2, can follow simple commands. Respirations even and unlabored, no SOB, no apparent distress noted. Gtube remained patent, intact and in place, placement verified with auscultation, and gastric residual (5ml). Abdominal bowel sound present in all quadrants, no grimacing when abdomen palpated, no nausea, no vomiting during shift. All due medications given via gtube per MD order, all needs attended, kept clean and dry, call light left within reach, safety precautions maintained, brakes locked, side rails up X 2, will endorse to next shift for continuity of care.
[2020-11-27] MEDS ORDERED: Sodium Phosphate 30 MMOL in IV NS 0.9% 250 ML IV SCH (19:30)
--- NOTE | 2020-11-27 20:00 | NUR ---
RN NOTES RECEIVED PATIENT IN BED, ALERT/ORIENTED X1, UNDERSTANDS HONG KONGER ONLY, VENTILATOR DEPENDENT, SPO2 100%, SUCTIONS SELF, PEG TUBE FEEDING, WILL START AT 2100, KEPT HOB ON HIGH KEY'S, PATIENT SEEMED COMFORTABLE, KEPT SAFE, WILL CONTINUE TO MONITOR.
[2020-11-27] MEDS: JEVITY 1.2 CAL 1,000 ML BOTTLE GT PRN (20:51)
[2020-11-27] MEDS: ATORVASTATIN 10 MG TABLET GT SCH (21:12)
[2020-11-27] MEDS: QUETIAPINE FUMARATE 25 MG TABLET GT SCH (21:12)
[2020-11-28] VITALS (7 sets, daily range): BP systolic 142–174; BP diastolic 65–85
--- NOTE | 2020-11-28 06:31 | NUR ---
RN NOTES MOLDER FITTING CALLED AT 0518, PATIENT IS IN DISTRESS, EYES BULGING, MOUTH WIDE OPEN, POINTING AT THROAT, INITIATED SUCTION. MOLDER FITTING CAME IN AND PROVIDED RESPIRATORY INTERVENTION, SPO2 REMAINED AT 100%, HR 75-84, ON SR ON TELE. NO TRANSFER NEEDED, PATIENT IS STABLE AND CALM, TOLERATING GTUBE FEEDING. HD TODAY, CONTINUE ANTIBIOTICS TO COMPLETE 7 DAYS, AWAITING CHAIR TIME AT [facility].
--- NOTE | 2020-11-28 07:21 | NUR ---
RN NOTES Patient in bed, AO X2, non-verbal but mouths words in South Korean and can follow simple commands. Respirations even and unlabored, w/ trach in place and vent settings tolerated by patient; no SOB, no distress noted. Gtube patent, intact and in place. Midline intact. Patient able to do oral suction using Yankauer; provided verbal instructions for safe suctioning. Safety precautions in place. Will continue to monitor.
[2020-11-28 07:33] LABS: BASOPHILS % (AUTO) 0.7 % (0.0-2.0); HEMATOCRIT 23 % (33-45); HEMOGLOBIN 7.7 g/dL (11.5-14.8); LYMPHOCYTES # (AUTO) 0.6 K/uL (0.8-4.8); MEAN CORPUSCULAR HGB CONC 34 g/dl (31.0-36.0); MEAN CORPUSCULAR VOLUME 98 fL (82-100); MONOCYTES # (AUTO) 0.3 K/uL (0.1-1.30); MONOCYTES % (AUTO) 9.5 % (2.0-12.0); NEUTROPHILS # (AUTO) 2.7 K/uL (1.8-8.9); NEUTROPHILS % (AUTO) 73.8 % (43.0-81.0); PLATELET COUNT (AUTO) 69 K/uL (150-450); RED BLOOD CELL COUNT(AUTO) 2.34 MIL/uL (4.0-5.2); WHITE BLOOD COUNT (AUTO) 3.6 K/uL (4.3-11.0)
[2020-11-28 07:58] LABS: CALCIUM, SERUM 8.2 mg/dL (8.5-10.1); CREATININE 2.4 mg/dL (0.6-1.3); PHOSPHORUS 5.2 mg/dL (2.5-4.9)
[2020-11-28 08:00] LABS: GENTAMICIN,RANDOM 4.2 ug/ml (4.0-8.0)
[2020-11-28 08:05] LABS: POTASSIUM 6.9 mmol/L (3.5-5.1)
[2020-11-28] MEDS: LEVOTHYROXINE SODIUM 75 MCG TABLET GT SCH (08:36)
[2020-11-28] MEDS: ZINC SULFATE 220 MG CAPSULE GT SCH (08:36)
[2020-11-28] MEDS: PANTOPRAZOLE 40 MG/PACK PACK GT SCH (08:36)
[2020-11-28] MEDS: HYDROXYCHLOROQUINE 200 MG TABLET GT SCH (08:36)
[2020-11-28] MEDS: FERROUS SULFATE UDC 300 MG/5 ML UDC GT SCH (08:36)
[2020-11-28] MEDS: SERTRALINE HCL 50 MG TABLET GT SCH (08:36)
[2020-11-28] MEDS: POTASSIUM CHLORIDE 20 MEQ POWDER PACKET GT SCH ×2 (08:36→08:41)
--- NOTE | 2020-11-28 08:41 | NUR ---
RN NOTES POTASSIUM DOSE HELD SECONDARY TO ELEVATED POTASSIUM LEVEL.
[2020-11-28] MEDS: DAKINS QUARTER STRENGTH (0.125%) 480 ML BOTTLE TOP SCH (08:44)
[2020-11-28] MEDS ORDERED: INSULIN REGULAR, HUMAN 100 UNIT/ML 3 ML VIAL IV ONE (09:30)
[2020-11-28] MEDS ORDERED: DEXTROSE 50%-WATER 50 ML DISP.SYRIN IVP ONE (09:30)
--- NOTE | 2020-11-28 09:55 | NUR ---
RN NOTES PATIENT SEEN BY DR. ESPINOZA W/ ORDERS NOTED.
[2020-11-28 13:47] LABS: CALCIUM, SERUM 7.8 mg/dL (8.5-10.1); CREATININE 1.8 mg/dL (0.6-1.3); POTASSIUM 5.3 mmol/L (3.5-5.1)
[2020-11-28] MEDS: GENTAMICIN 100 MG in IV D5W 50 ML IV PRN (16:46)
--- NOTE | 2020-11-28 16:56 | NUR ---
RN NOTES S/P HD TODAY, 1500ML FLUID OUT PER HD NURSE ODESSA. SPOKE W/ YESI FROM PHARMACY, OK TO GIVE VANCOMYCIN AND GENTAMICIN POST HD.
[2020-11-28] MEDS: VANCOMYCIN POST DIALYSIS 500MG IV PRN (17:08)
--- NOTE | 2020-11-28 18:43 | NUR ---
RN NOTES VANCO AND GENTA IV ATB ADMINISTERED INDICATED. GT FEEDING OFF AT 1500, NO RESIDUAL NOTED, FLUSHED W/ WATER DURING SHIFT. PATIENT ABLE TO PERFORM ORAL SUCTIONING W/ YANKAUER; MINIMAL SECRETION NOTED FROM TRACHEAL SUCTION. IRMA AV FISTULA INTACT W/ POSITIVE BRUIT AND THRILL S/P HD TODAY. SAFETY MEASURES MAINTAINED. WILL ENDORSE ACCORDINGLY.
[2020-11-28] MEDS: ATORVASTATIN 10 MG TABLET GT SCH (21:33)
[2020-11-28] MEDS: QUETIAPINE FUMARATE 25 MG TABLET GT SCH (21:33)
[2020-11-29 00:12] VITALS: BP 145/58
[2020-11-29 04:00] VITALS: BP 137/69
--- NOTE | 2020-11-29 05:51 | NUR ---
RN notes Awake in bed with no distress noted. Breathing even and unlabored. Vent setting well tolerated. No complaint of pain or discomfort. Alert and oriented. Able to mouthwords needs. Vital signs wnl. Kept clean and dry. Will endorse to next shift for continuity of care.
[2020-11-29 06:50] LABS: CALCIUM, SERUM 8.1 mg/dL (8.5-10.1); CREATININE 1.9 mg/dL (0.6-1.3); PHOSPHORUS 4.3 mg/dL (2.5-4.9); POTASSIUM 4.7 mmol/L (3.5-5.1)
--- NOTE | 2020-11-29 07:22 | NUR ---
FIREWALL ADMINISTRATOR OPENING NOTE RECEIVED PT IN BED, A/O X2, RESPONDS TO NAME AND TOUCH, MOUTH WORDS IN [place]. PATIENT NOTED WITH TRACH AND VENT SHILEY 6 TRACH TO MECHANICAL VENT WITH SETTING FOLLOWS: AC 14 TV 400 FIO2 30 PEEP 5, BREATHING EVEN AND UNLABORED. NO RESP DISTRESS NOTED. SINUS RHYTHM ON TELE MONITOR, DENIES ANY PAIN. IV ACCESS (R) UA MIDLINE, (R) FA BOTH PATENT WITH CLEAN AND DRY DRESSING. LEFT ARM AV FISTULA, THRILL PRESENT, G TUBE RUNNING JEVITY 1.2 WITH GOAL 55ML/HR X18HRS, ON @ 2100 OFF 1500. SAFETY MEASURES IMPLEMENTED: BED LOCKED IN LOWEST POSITION, HOB ELEVATED IN SEMI FOWLERS, SIDE RAILS UP X3, CALL LIGHT WITHIN REACH. WILL CONTINUE TO MONITOR
[2020-11-29] MEDS: ZINC SULFATE 220 MG CAPSULE GT SCH (08:31)
[2020-11-29] MEDS: SERTRALINE HCL 50 MG TABLET GT SCH (08:31)
[2020-11-29] MEDS: LEVOTHYROXINE SODIUM 75 MCG TABLET GT SCH (08:32)
[2020-11-29] MEDS: POTASSIUM CHLORIDE 20 MEQ POWDER PACKET GT SCH (08:32)
[2020-11-29] MEDS: HYDROXYCHLOROQUINE 200 MG TABLET GT SCH (08:32)
[2020-11-29] MEDS: PANTOPRAZOLE 40 MG/PACK PACK GT SCH (08:32)
[2020-11-29] MEDS: FERROUS SULFATE UDC 300 MG/5 ML UDC GT SCH (08:32)
[2020-11-29] MEDS: DAKINS QUARTER STRENGTH (0.125%) 480 ML BOTTLE TOP SCH (08:35)
[2020-11-29 08:37] VITALS: BP_SYST 135; BP_SYST 144; BP_DIAS 88; BP_DIAS 93
[2020-11-29 08:43] LABS: BASOPHILS % (AUTO) 0.7 % (0.0-2.0); HEMATOCRIT 24 % (33-45); HEMOGLOBIN 7.8 g/dL (11.5-14.8); LYMPHOCYTES # (AUTO) 0.8 K/uL (0.8-4.8); LYMPHOCYTES % (AUTO) 20.5 % (20.0-44.0); MEAN CORPUSCULAR HGB CONC 33 g/dl (31.0-36.0); MEAN CORPUSCULAR VOLUME 98 fL (82-100); MONOCYTES # (AUTO) 0.3 K/uL (0.1-1.30); MONOCYTES % (AUTO) 8.2 % (2.0-12.0); NEUTROPHILS # (AUTO) 2.8 K/uL (1.8-8.9); NEUTROPHILS % (AUTO) 70.6 % (43.0-81.0); PLATELET COUNT (AUTO) 76 K/uL (150-450); RED BLOOD CELL COUNT(AUTO) 2.41 MIL/uL (4.0-5.2)
[2020-11-29 16:34] VITALS: BP 150/71
--- NOTE | 2020-11-29 18:24 | NUR ---
PHOTOGRAPHER SCIENTIFIC CLOSING NOTE PT IN BED, A/O X2, RESPONDS TO NAME AND TOUCH, MOUTH WORDS IN KHMER. PATIENT NOTED WITH TRACH AND VENT SHILEY 6 TRACH TO MECHANICAL VENT WITH SETTING FOLLOWS: AC 14 TV 400 FIO2 30 PEEP 5, BREATHING EVEN AND UNLABORED. NO RESP DISTRESS NOTED. SINUS RHYTHM ON TELE MONITOR, DENIES ANY PAIN. IV ACCESS (R) UA MIDLINE, (R) FA BOTH PATENT WITH CLEAN AND DRY DRESSING. LEFT ARM AV FISTULA, THRILL PRESENT, G TUBE RUNNING JEVITY 1.2 WITH GOAL 55ML/HR X18HRS, ON @ 2100 OFF 1500. ALL MEDICATIONS GIVEN ORDERED. Q2HR TURNING AND POSITIONING PERFORMED THROUGHOUT SHIFT. SAFETY MEASURES IMPLEMENTED: BED LOCKED IN LOWEST POSITION, HOB ELEVATED IN SEMI FOWLERS, SIDE RAILS UP X3, CALL LIGHT WITHIN REACH. WILL ENDORSE TO ONCOMING SHIFT
--- NOTE | 2020-11-29 19:00 | NUR ---
DIRECTOR OF CONSULTING SERVICES OPENING NOTE RECEIVED PT AWAKE IN BED. A/OX 1-2. PT STABLE ON VENTILATOR. NO SOB NOTED, NO S/S OF RESPIRATORY DISTRESS. PT IS ON EXTERNAL DIRECTOR BUSINESS MANAGEMENT READING SR. NO C/O PAIN AT THIS TIME. IV ACCESS IN R UPPER MIDLINE, R FOREARM #20 IV IS INTACT, PATENT AND FLUSHING WELL.PT IS INCONTINENT, PEG TUBE IN PLACE. SAFETY MEASURES MAINTAINED TAT ALL TIMES. BED IN LOWEST LOCKED POSITION, HOB ELEVATED, SIDE RAILS UP X2. CALL LIGHT AND TABLE WITHIN REACH. WILL CONTINUE WITH PLAN OF CARE.
[2020-11-29 20:00] VITALS: BP 143/72
[2020-11-29] MEDS: ATORVASTATIN 10 MG TABLET GT SCH (21:50)
[2020-11-29] MEDS: QUETIAPINE FUMARATE 25 MG TABLET GT SCH (21:50)
[2020-11-30] VITALS: BP 135/67
[2020-11-30 04:00] VITALS: BP 137/74
--- NOTE | 2020-11-30 06:30 | NUR ---
PIN OR CLIP FASTENER CLOSING NOTE RECEIVED PT AWAKE IN BED.A/OX1 AND NONVERBAL. PT STABLE ON VENTILATOR. NO SOB NOTED, NO S/S OF RESPIRATORY DISTRESS. PT IS BR. PT IS ON EXTERNAL CARDIAC MONITORING READING SR @ 71. PT DENIES PAIN OR DISCOMFORT AT THIS TIME. . ALL NEEDS HAVE BEEN MET. [place] CATHETER CARE PROVIDED AND DRAIN SAFETY, SEIZURE, AND ASPIRATION PRECAUTIONS MAINTAINED AT ALL TIMES. BED IN LOWEST LOCKED POSITION WITH BED ALARM ON SIDE RAILS UP X2. HOB ELEVATED. CALL LIGHT AND TABLE WITHIN REACH. WILL ENDORSE TO ONCOMING NURSE FOR QUANG.
--- NOTE | 2020-11-30 07:49 | NUR ---
CANNONEER OPENING NOTES RECEIVED PATIENT IN BED, AWAKE, A/O BUT NON-VERBAL. PATIENT ON VENT, TOLERATING SETTINGS WELL AT THIS TIME; BREATHING EVEN AND UNLABORED AT THIS TIME. TELE MONITOR WITH A CURRENT READING OF NSR 71 BPM. ROMAN MIDLINE PRESENT AND INTACT. G-TUBE PRESENT AND RUNNING JEVITY 1.2 @55 MLS/HR. [place] CATH PRESENT DRAINING YELLOW URINE. SAFETY PRECAUTIONS IN PLACE; BED IN LOW POSITION AND LOCKED, RAILS UP X2, CALL LIGHT WITHIN REACH. WILL CONTINUE TO MONITOR PATIENT.
[2020-11-30 08:00] VITALS: BP 162/73
[2020-11-30] MEDS: PANTOPRAZOLE 40 MG/PACK PACK GT SCH (08:11)
[2020-11-30] MEDS: FERROUS SULFATE UDC 300 MG/5 ML UDC GT SCH (08:11)
[2020-11-30] MEDS: ZINC SULFATE 220 MG CAPSULE GT SCH (08:11)
[2020-11-30] MEDS: HYDROXYCHLOROQUINE 200 MG TABLET GT SCH (08:11)
[2020-11-30] MEDS: POTASSIUM CHLORIDE 20 MEQ POWDER PACKET GT SCH (08:11)
[2020-11-30] MEDS: LEVOTHYROXINE SODIUM 75 MCG TABLET GT SCH (08:12)
[2020-11-30] MEDS: SERTRALINE HCL 50 MG TABLET GT SCH (08:12)
[2020-11-30] MEDS: DAKINS QUARTER STRENGTH (0.125%) 480 ML BOTTLE TOP SCH (08:20)
[2020-11-30] MEDS: ONDANSETRON HCL/PF 4 MG/2 ML VIAL IVP PRN (08:49)
--- NOTE | 2020-11-30 08:52 | NUR ---
WATCH ASSEMBLER NOTES PATIENT STARTED TO COMPLAIN OF NAUSEA. SMALL EMESIS PRESENT. PRN ZOFRAN ADMINISTERED. WILL REASSESS.
[2020-11-30 09:20] LABS: BASOPHILS % (AUTO) 0.5 % (0.0-2.0); HEMATOCRIT 24 % (33-45); LYMPHOCYTES # (AUTO) 0.8 K/uL (0.8-4.8); LYMPHOCYTES % (AUTO) 15.5 % (20.0-44.0); MEAN CORPUSCULAR HGB CONC 33 g/dl (31.0-36.0); MEAN CORPUSCULAR VOLUME 98 fL (82-100); MONOCYTES # (AUTO) 0.4 K/uL (0.1-1.30); MONOCYTES % (AUTO) 7.8 % (2.0-12.0); NEUTROPHILS # (AUTO) 3.8 K/uL (1.8-8.9); NEUTROPHILS % (AUTO) 76.2 % (43.0-81.0); PLATELET COUNT (AUTO) 88 K/uL (150-450); RED BLOOD CELL COUNT(AUTO) 2.48 MIL/uL (4.0-5.2)
[2020-11-30 09:30] LABS: CALCIUM, SERUM 8.8 mg/dL (8.5-10.1); CREATININE 2.4 mg/dL (0.6-1.3); MAGNESIUM 2.3 mg/dL (1.8-2.4); PHOSPHORUS 5.3 mg/dL (2.5-4.9)
[2020-11-30 10:46] LABS: LYMPHOCYTES % (MANUAL) 10 % (16-48); MONOCYTES % (MANUAL) 6 % (0-11.0); NEUTROPHILS % (MANUAL) 84 (42-76)
[2020-11-30 12:00] VITALS: BP 160/70
[2020-11-30] MEDS: PROSOURCE / PROSTAT (PYXIS) 30 ML UDC GT SCH ×2 (13:30→16:06)
[2020-11-30] MEDS: JEVITY 1.2 CAL 1,000 ML BOTTLE GT PRN (14:18)
[2020-11-30 16:00] VITALS: BP 162/79
--- NOTE | 2020-11-30 18:42 | NUR ---
ORNAMENTAL BRICK INSTALLER NOTES PATIENT ABOUT TO START DIALYSIS.
--- NOTE | 2020-11-30 18:50 | NUR ---
QUOTE CLERK CLOSING NOTES: PATIENT REMAINS IN BED, AWAKE, A/O BUT NON-VERBAL. PATIENT ON VENT, TOLERATING SETTINGS WELL AT THIS TIME; BREATHING EVEN AND UNLABORED DURING THE DAY. TELE MONITOR WITH A CURRENT READING OF NSR. ROMAN MIDLINE PRESENT AND INTACT. G-TUBE PRESENT AND RUNNING JEVITY 1.2 @55 MLS/HR. ALL NEEDS ATTENDED DURING THE DAY. HD STILL IN PROCESS. SAFETY PRECAUTIONS IN PLACE; BED IN LOW POSITION AND LOCKED, RAILS UP X2, CALL LIGHT WITHIN REACH. WILL ENDORSE TO SALES VENDOR NURSE.
--- NOTE | 2020-11-30 19:36 | NUR ---
OPENING RN NOTES PATIENT REMAINS IN BED, AWAKE, A/O BUT NON-VERBAL. PATIENT ON VENT, TOLERATING SETTINGS WELL AT THIS TIME; BREATHING EVEN AND UNLABORED AT THIS TIME. TELE MONITOR WITH A CURRENT READING OF NSR. ROMAN MIDLINE PRESENT AND INTACT. G-TUBE PRESENT AND RUNNING JEVITY 1.2 @55 MLS/HR. ALL NEEDS ATTENDED DURING THE DAY. HD DONE TODAY. SAFETY PRECAUTIONS IN PLACE; BED IN LOW POSITION AND LOCKED, RAILS UP X2, CALL LIGHT WITHIN REACH. WILL CONTINUE TO MONITOR. Addendum: 11/30/20 at 2158 by NIC VELASQUEZ RN ptis currently receiving hd at bedside
[2020-11-30 20:00] VITALS: BP 150/64
[2020-11-30] MEDS: ATORVASTATIN 10 MG TABLET GT SCH (21:15)
[2020-11-30] MEDS: QUETIAPINE FUMARATE 25 MG TABLET GT SCH (21:15)
--- NOTE | 2020-11-30 23:06 | NUR ---
RN NOTES PT DONE WITH HD WITH 2L OUTPUT VITAL SIGNS STABLE WILL CONTINUE TO MONITOR.
[2020-12-01] VITALS: BP 132/62
[2020-12-01 04:00] VITALS: BP 156/76
--- NOTE | 2020-12-01 06:39 | NUR ---
RN NOTES PATIENT REMAINS IN BED, AWAKE, A/O BUT NON-VERBAL. PATIENT ON VENT, TOLERATING SETTINGS WELL AT THIS TIME; BREATHING EVEN AND UNLABORED AT THIS TIME. TELE MONITOR WITH A CURRENT READING OF NSR. ROMAN MIDLINE PRESENT AND INTACT. G-TUBE PRESENT AND RUNNING JEVITY 1.2 @55 MLS/HR. ALL NEEDS ATTENDED DURING THE DAY. SAFETY PRECAUTIONS IN PLACE; BED IN LOW POSITION AND LOCKED, RAILS UP X2, CALL LIGHT WITHIN REACH. WILL ENDORSE CARE TO DAY SHIFT NURSE.
--- NOTE | 2020-12-01 07:21 | NUR ---
CHEESE PANCAKE ROLLER OPENING NOTES RECEIVED PATIENT IN BED, AWAKE, A/O BUT NON-VERBAL. PATIENT ON VENT, TOLERATING SETTINGS WELL AT THIS TIME; BREATHING EVEN AND UNLABORED AT THIS TIME. TELE MONITOR WITH A CURRENT READING OF NSR 74 BPM. ROMAN MIDLINE PRESENT AND INTACT. G-TUBE PRESENT AND RUNNING JEVITY 1.2 @55 MLS/HR. SAFETY PRECAUTIONS IN PLACE; BED IN LOW POSITION AND LOCKED, RAILS UP X2, CALL LIGHT WITHIN REACH. WILL CONTINUE TO MONITOR PATIENT.
[2020-12-01 08:00] VITALS: BP 150/72
[2020-12-01] MEDS: ZINC SULFATE 220 MG CAPSULE GT SCH (09:26)
[2020-12-01] MEDS: PANTOPRAZOLE 40 MG/PACK PACK GT SCH (09:26)
[2020-12-01] MEDS: SERTRALINE HCL 50 MG TABLET GT SCH (09:26)
[2020-12-01] MEDS: FERROUS SULFATE UDC 300 MG/5 ML UDC GT SCH (09:26)
[2020-12-01] MEDS: HYDROXYCHLOROQUINE 200 MG TABLET GT SCH (09:26)
[2020-12-01] MEDS: POTASSIUM CHLORIDE 20 MEQ POWDER PACKET GT SCH (09:26)
[2020-12-01] MEDS: LEVOTHYROXINE SODIUM 75 MCG TABLET GT SCH (09:26)
[2020-12-01] MEDS: PROSOURCE / PROSTAT (PYXIS) 30 ML UDC GT SCH ×3 (09:28→16:30)
[2020-12-01] MEDS: DAKINS QUARTER STRENGTH (0.125%) 480 ML BOTTLE TOP SCH (09:28)
[2020-12-01 12:00] VITALS: BP 169/69
[2020-12-01] MEDS: ACETAMINOPHEN 325 MG TABLET PO PRN (12:30)
[2020-12-01 16:00] VITALS: BP 163/68
--- NOTE | 2020-12-01 18:13 | NUR ---
RT end of the shift note, Pt. 45 Y old Female awake and alert, trach Shiley # 6 cuffed on vent with noted SIMV settings, alarms are set and functional, arabella. well t/o day. no respiratory distress noted ( sometimes pt. agitated, anxiety level up and down RN aware). pt. use Yankauer to suction her mouth and suctioned trach for minimal amt. clear secretions. b/s bilaterally rales. Pt. would NOT allow RT to do minimal leak technic (MOID MIDDLE SCHOOL TEACHER) on trach cuff, Pt. refuses trach care, Pt. refused any contact with trach area. HME changed, extra trach and Ambu bag remain at the bedside. pt. remain stable and no sign of distress. continue to monitor and report will pass to PM shift. Addendum: 12/01/20 at 1821 by GRACIELA JEFFRIES RT Amended: Links added.
--- NOTE | 2020-12-01 18:32 | NUR ---
CERTIFIED MEDICATION AIDE CLOSING NOTES: PATIENT REMAINS IN BED, AWAKE, A/O BUT NON-VERBAL. PATIENT ON VENT, TOLERATING SETTINGS WELL AT THIS TIME; BREATHING EVEN AND UNLABORED DURING THE DAY. TELE MONITOR WITH A CURRENT READING OF NSR. ROMAN MIDLINE PRESENT AND INTACT. G-TUBE PRESENT AND RUNNING JEVITY 1.2 @55 MLS/HR. ALL NEEDS ATTENDED DURING THE DAY. SAFETY PRECAUTIONS IN PLACE; BED IN LOW POSITION AND LOCKED, RAILS UP X2, CALL LIGHT WITHIN REACH. WILL ENDORSE TO FOREST FIRE LOOKOUT NURSE.
--- NOTE | 2020-12-01 19:30 | NUR ---
OPENING NOTES PATIENT REMAINS IN BED, AWAKE, A/O BUT NON-VERBAL. PATIENT ON VENT, TOLERATING SETTINGS WELL AT THIS TIME; BREATHING EVEN AND UNLABORED DURING THE DAY. TELE MONITOR WITH A CURRENT READING OF NSR. ROMAN MIDLINE PRESENT AND INTACT. G-TUBE PRESENT AND RUNNING JEVITY 1.2 @55 MLS/HR. ALL NEEDS ATTENDED DURING THE DAY. SAFETY PRECAUTIONS IN PLACE; BED IN LOW POSITION AND LOCKED, RAILS UP X2, CALL LIGHT WITHIN REACH. WILL CONTINUE TO MONITOR.
[2020-12-01 20:00] VITALS: BP 160/78
[2020-12-01] MEDS: JEVITY 1.2 CAL 1,000 ML BOTTLE GT PRN (20:20)
[2020-12-01] MEDS: LORAZEPAM 1 MG TABLET PEG PRN (20:45)
--- NOTE | 2020-12-01 20:52 | NUR ---
RN NOTES PT HAVING ANXIETY NOTIFIED ROVING HAND DR BARBOSA ATIVAN 1MG VIA PEG TUBE Q6 HR PRN ORDER NOTED AND CARRIED OUT ATIVAN GIVEN TO PT TOLERATED WELL WILL CONTINUE TO MONITOR.
[2020-12-01] MEDS: QUETIAPINE FUMARATE 25 MG TABLET GT SCH (22:18)
[2020-12-01] MEDS: ATORVASTATIN 10 MG TABLET GT SCH (22:18)
[2020-12-02] VITALS: BP 153/86
[2020-12-02 04:00] VITALS: BP 159/76
--- NOTE | 2020-12-02 06:36 | NUR ---
CLOSING NOTES PATIENT REMAINS IN BED, AWAKE, A/O BUT NON-VERBAL. PATIENT ON VENT, TOLERATING SETTINGS WELL AT THIS TIME; BREATHING EVEN AND UNLABORED DURING THE DAY. TELE MONITOR WITH A CURRENT READING OF NSR. ROMAN MIDLINE PRESENT AND INTACT. G-TUBE PRESENT AND RUNNING JEVITY 1.2 @55 MLS/HR. ALL NEEDS ATTENDED DURING THE DAY. SAFETY PRECAUTIONS IN PLACE; BED IN LOW POSITION AND LOCKED, RAILS UP X2, CALL LIGHT WITHIN REACH. PT ABOUT TO BEGIN DIALYSIS DIALYSIS NURSE AT BEDSIDE WILL ENDORSE TO DAY SHIFT NURSE.
[2020-12-02 07:10] LABS: BASOPHILS % (AUTO) 0.6 % (0.0-2.0); EOSINOPHILS % (AUTO) 0.1 % (0.0-6.0); HEMATOCRIT 21 % (33-45); HEMOGLOBIN 7.1 g/dL (11.5-14.8); LYMPHOCYTES # (AUTO) 0.6 K/uL (0.8-4.8); LYMPHOCYTES % (AUTO) 11.1 % (20.0-44.0); MEAN CORPUSCULAR HGB CONC 33 g/dl (31.0-36.0); MEAN CORPUSCULAR VOLUME 98 fL (82-100); MONOCYTES # (AUTO) 0.4 K/uL (0.1-1.30); MONOCYTES % (AUTO) 6.8 % (2.0-12.0); NEUTROPHILS # (AUTO) 4.3 K/uL (1.8-8.9); NEUTROPHILS % (AUTO) 81.4 % (43.0-81.0); PLATELET COUNT (AUTO) 102 K/uL (150-450); RED BLOOD CELL COUNT(AUTO) 2.16 MIL/uL (4.0-5.2); WHITE BLOOD COUNT (AUTO) 5.3 K/uL (4.3-11.0)
--- NOTE | 2020-12-02 07:30 | NUR ---
RN OPENING NOTE Pt is asleep, arousable to stimuli, currently on dialysis treatment at bedside. On mechanical vent, no respiratory distress, no SOB. Safety precautions implemented, bed locked in lowest position, call light within reach.
[2020-12-02 07:40] LABS: CALCIUM, SERUM 8.3 mg/dL (8.5-10.1); CREATININE 2.3 mg/dL (0.6-1.3)
[2020-12-02 07:47] LABS: POTASSIUM 6.5 mmol/L (3.5-5.1)
[2020-12-02 08:00] VITALS: BP 166/70
--- NOTE | 2020-12-02 08:30 | NUR ---
RN NOTE 0815-Informed DNP, critical result of K. 0830-DNP gave order to hold Klor due at 0900. Patient currently having dialysis.
[2020-12-02] MEDS: FERROUS SULFATE UDC 300 MG/5 ML UDC GT SCH (08:50)
[2020-12-02] MEDS: PANTOPRAZOLE 40 MG/PACK PACK GT SCH (08:50)
[2020-12-02] MEDS: SERTRALINE HCL 50 MG TABLET GT SCH (08:51)
[2020-12-02] MEDS: ZINC SULFATE 220 MG CAPSULE GT SCH (08:51)
[2020-12-02] MEDS: HYDROXYCHLOROQUINE 200 MG TABLET GT SCH (08:51)
[2020-12-02] MEDS: POTASSIUM CHLORIDE 20 MEQ POWDER PACKET GT SCH (08:51)
[2020-12-02] MEDS: PROSOURCE / PROSTAT (PYXIS) 30 ML UDC GT SCH ×3 (08:55→16:54)
[2020-12-02] MEDS: LEVOTHYROXINE SODIUM 75 MCG TABLET GT SCH (09:00)
[2020-12-02] MEDS: DAKINS QUARTER STRENGTH (0.125%) 480 ML BOTTLE TOP SCH (09:04)
--- NOTE | 2020-12-02 10:50 | NUR ---
RN NOTE HD done-removed 1L. Tolerated well. Left upper arm AV fistula with clean dressing.
[2020-12-02 12:00] VITALS: BP 194/68
[2020-12-02] MEDS: LORAZEPAM 1 MG TABLET PEG PRN (12:10)
[2020-12-02 16:00] VITALS: BP 171/80
--- NOTE | 2020-12-02 19:13 | NUR ---
GRAPHIC ILLUSTRATOR CLOSING NOTE Pt is A/O X 2 able to mouth words in setswana, on mechanical vent, no respiratory distress, no SOB. Enteral feeding patent with ongoing feeding no residual obtained, HOB remains elevated >45%. Complains of anxiety-relieved after administration of ativan. IV site ROMAN/RFA patent and intact, wound care rendered. AM/PM care rendered. Safety precautions implemented, bed locked in lowest position, call light within reach. Spoke with daughter chrissy, gave status report.
[2020-12-02 20:00] VITALS: BP 159/75
--- NOTE | 2020-12-02 20:01 | NUR ---
supervisor coremaker Opening Notes Patient was last seen awake in bed resting. Patient is A/O X 2 and able to mouth words in turkish. Patient's on a mechanical vent with no respiratory distress noted. Patient's connected to a tele monitor with no cardiac distress noted. Patient has IV sites on her ROMAN/RFA gauge#20. rendered. Patient's in no acute distress at this time. Safety precautions implemented: Bed locked, bed alarm on, side rails upx3, and call light within reach of the patient. Will continue to monitor the patient.
[2020-12-02] MEDS: QUETIAPINE FUMARATE 25 MG TABLET GT SCH (21:51)
[2020-12-02] MEDS: ATORVASTATIN 10 MG TABLET GT SCH (21:51)
[2020-12-03] VITALS (8 sets, daily range): BP systolic 103–185; BP diastolic 63–88
[2020-12-03] MEDS: JEVITY 1.2 CAL 1,000 ML BOTTLE GT PRN (03:16)
[2020-12-03] MEDS: hydrALAZINE HCL IV 20 MG VIAL IV PRN (04:52)
[2020-12-03 06:54] LABS: HEMATOCRIT 22 % (33-45); HEMOGLOBIN 7.3 g/dL (11.5-14.8); LYMPHOCYTES # (AUTO) 0.8 K/uL (0.8-4.8); MEAN CORPUSCULAR HGB CONC 33 g/dl (31.0-36.0); MEAN CORPUSCULAR VOLUME 98 fL (82-100)
[2020-12-03 07:27] LABS: CALCIUM, SERUM 8.2 mg/dL (8.5-10.1); CREATININE 1.8 mg/dL (0.6-1.3); MAGNESIUM 1.9 mg/dL (1.8-2.4); PHOSPHORUS 3.5 mg/dL (2.5-4.9); POTASSIUM 4.6 mmol/L (3.5-5.1)
--- NOTE | 2020-12-03 07:30 | NUR ---
CLINICAL APPLICATION MANAGER OPENING NOTES RECEIVED PATIENT IN BED, AWAKE, A/O X 1, BUT MUMBLES GIBRALTARIAN WORDS. PATIENT ON VENT, TOLERATING SETTINGS WELL AT THIS TIME; BREATHING EVEN AND UNLABORED AT THIS TIME. TELE MONITOR WITH A CURRENT READING OF NSR 74 BPM. ROMAN MIDLINE PRESENT AND INTACT. G-TUBE PRESENT AND RUNNING JEVITY 1.2 @55 MLS/HR, TOLERATING WELL, NO RESIDUAL NOTED. SAFETY PRECAUTIONS IN PLACE; BED IN LOW POSITION AND LOCKED, RAILS UP X2, KEPT HOB ELEVATED AT ALL TIMES. CALL LIGHT WITHIN REACH. WILL CONTINUE TO MONITOR PATIENT ACCORDINGLY.
[2020-12-03] MEDS: HYDROXYCHLOROQUINE 200 MG TABLET GT SCH (08:35)
[2020-12-03] MEDS: SERTRALINE HCL 50 MG TABLET GT SCH (08:35)
[2020-12-03] MEDS: PANTOPRAZOLE 40 MG/PACK PACK GT SCH (08:35)
[2020-12-03] MEDS: FERROUS SULFATE UDC 300 MG/5 ML UDC GT SCH (08:35)
[2020-12-03] MEDS: LEVOTHYROXINE SODIUM 75 MCG TABLET GT SCH (08:36)
[2020-12-03] MEDS: ZINC SULFATE 220 MG CAPSULE GT SCH (08:36)
[2020-12-03] MEDS: DAKINS QUARTER STRENGTH (0.125%) 480 ML BOTTLE TOP SCH (08:42)
[2020-12-03 08:45] LABS: BASOPHILS % (AUTO) 0.3 % (0.0-2.0); EOSINOPHILS % (AUTO) 0.1 % (0.0-6.0); LYMPHOCYTES % (AUTO) 10.3 % (20.0-44.0); MONOCYTES # (AUTO) 0.4 K/uL (0.1-1.30); MONOCYTES % (AUTO) 5.1 % (2.0-12.0); NEUTROPHILS # (AUTO) 6.8 K/uL (1.8-8.9); NEUTROPHILS % (AUTO) 84.2 % (43.0-81.0); PLATELET COUNT (AUTO) 118 K/uL (150-450); RED BLOOD CELL COUNT(AUTO) 2.27 MIL/uL (4.0-5.2); WHITE BLOOD COUNT (AUTO) 8.1 K/uL (4.3-11.0)
[2020-12-03] MEDS: PROSOURCE / PROSTAT (PYXIS) 30 ML UDC GT SCH ×3 (09:58→16:20)
--- NOTE | 2020-12-03 10:00 | NUR ---
RN NOTES RECHECKED BLOOD PRESSURE LEVEL. RESULT WAS 158/88, HR 77. WILL CONTINUE TO MONITOR ACCORDINGLY.
[2020-12-03 12:11] LABS: THYROID STIMULATING HORMONE 84.093 uIU/mL (0.358-3.74)
--- NOTE | 2020-12-03 18:50 | NUR ---
WINDMILL TECHNICIAN CLOSING NOTES PATIENT IN BED, AWAKE, A/O X 1, BUT MUMBLES UPPER SORBIAN WORDS. PATIENT ON VENT, TOLERATING SETTINGS WELL AT THIS TIME; BREATHING EVEN AND UNLABORED AT THIS TIME. TELE MONITOR WITH A CURRENT READING OF NSR 74 BPM. ROMAN MIDLINE PRESENT AND INTACT. G-TUBE PRESENT AND RUNNING JEVITY 1.2 @55 MLS/HR, TOLERATING WELL, NO RESIDUAL NOTED. SAFETY PRECAUTIONS IN PLACE; BED IN LOW POSITION AND LOCKED, RAILS UP X2, KEPT HOB ELEVATED AT ALL TIMES. CALL LIGHT WITHIN REACH. ALL NEEDS ATTENDED AND MET. WILL ENDORSE TO ONCOMING SHIFT FOR QUANG.
[2020-12-03] MEDS: ACETAMINOPHEN 325 MG TABLET PO PRN (18:51)
--- NOTE | 2020-12-03 19:30 | NUR ---
RN OPENING NOTE PATIENT IN BED, AWAKE. PATIENT IS A/O X 2 AT THIS TIME. ABLE TO MAKE NEEDS KNOWN. PATIENT ABLE TO MOUTH WORDS AND REQUESTS. ON TRACH AND MECH VENT WITH SETTINGS OF AC 14, TV 400, FIO2 30, AND PEEP 5. TELE MONITOR READS 77 BPM SR. PATIENT HAS AN G TUBE RUNNING JEVITY 1.2 @55 ML/HR. PATIENT HAS A ROMAN MIDLINE AND RFA 20 G SALINE LOCKED. SAFETY MEASURES IN PLACE: BED LOCKED AND IN LOWEST POSITION, CONTINUOUS O2 SAT ON, SIDE RAILS UP, BED ALARM ON. WILL MONITOR PATIENT CLOSELY.
[2020-12-03] MEDS: CARVEDILOL 12.5 MG TABLET GT SCH (21:00)
[2020-12-03] MEDS: ATORVASTATIN 10 MG TABLET GT SCH (21:38)
[2020-12-03] MEDS: QUETIAPINE FUMARATE 25 MG TABLET GT SCH (21:38)
[2020-12-04] VITALS: BP 147/73
[2020-12-04] MEDS: LORAZEPAM 1 MG TABLET PEG PRN ×2 (02:13→17:47)
--- NOTE | 2020-12-04 02:17 | NUR ---
RN NOTE ATIVAN GIVEN FOR ANXIOUSNESS. WILL CHECK MED EFFECTIVENESS.
[2020-12-04] MEDS: JEVITY 1.2 CAL 1,000 ML BOTTLE GT PRN (03:37)
[2020-12-04 04:00] VITALS: BP 148/67
[2020-12-04 06:47] LABS: CALCIUM, SERUM 8.3 mg/dL (8.5-10.1); CREATININE 2.4 mg/dL (0.6-1.3); PHOSPHORUS 4.4 mg/dL (2.5-4.9); POTASSIUM 5.1 mmol/L (3.5-5.1)
[2020-12-04 07:07] LABS: BASOPHILS % (AUTO) 0.8 % (0.0-2.0); EOSINOPHILS % (AUTO) 0.2 % (0.0-6.0); HEMATOCRIT 22 % (33-45); LYMPHOCYTES # (AUTO) 0.7 K/uL (0.8-4.8); LYMPHOCYTES % (AUTO) 13.5 % (20.0-44.0); MEAN CORPUSCULAR HGB CONC 32 g/dl (31.0-36.0); MEAN CORPUSCULAR VOLUME 99 fL (82-100); MONOCYTES # (AUTO) 0.4 K/uL (0.1-1.30); MONOCYTES % (AUTO) 7.2 % (2.0-12.0); NEUTROPHILS # (AUTO) 3.9 K/uL (1.8-8.9); NEUTROPHILS % (AUTO) 78.3 % (43.0-81.0); PLATELET COUNT (AUTO) 121 K/uL (150-450)
--- NOTE | 2020-12-04 07:15 | NUR ---
RN OPENING NOTES Patient seen comfortably lying in bed, with ongoing hemodialysis. Respirations even and unlabored, no SOB, no apparent distress noted, no grimacing. Safety precautions maintained, brakes locked, side rails up X 2, call light left within reach, will monitor closely for any changes.
--- NOTE | 2020-12-04 07:30 | NUR ---
RN CLOSING NOTE PATIENT IN BED, ASLEEP. PATIENT IS A/O X 2 AT THIS TIME. ABLE TO MAKE NEEDS KNOWN. PATIENT ABLE TO MOUTH WORDS AND REQUESTS. HAS ONGOING HD STARTED ON 604. ON TRACH AND MECH VENT WITH SETTINGS OF AC 14, TV 400, FIO2 30, AND PEEP 5. TELE MONITOR READS 82 BPM SR. PATIENT HAS AN G TUBE RUNNING JEVITY 1.2 @55 ML/HR. PATIENT HAS A ROMAN MIDLINE AND RFA 20 G SALINE LOCKED. SAFETY MEASURES MAINTAINED. ALL ORDERS CARRIED OUT, ALL NEEDS MET AND ATTENDED. SUCTIONED NEEDED. ENDORSED TO DAY SHIFT NURSE FOR QUANG.
--- NOTE | 2020-12-04 07:30 | NUR ---
Received a call from labs stating that patient's hgb is 7.0 today. Patient seen in bed no apparent distress noted, no bleeding noted, denies dizziness, no palpitations. Results relayed to Patrick Velasquez, will follow up for orders.
--- NOTE | 2020-12-04 07:35 | NUR ---
Per Patrick Velasquez, no new orders at this time regarding patient's hgb level of 7.0, will continue to monitor for any changes. Patient seen comfortably lying in bed, no apparent distress noted, no bleeding.
[2020-12-04 08:00] VITALS: BP 181/79
[2020-12-04] MEDS: SERTRALINE HCL 50 MG TABLET GT SCH (09:16)
[2020-12-04] MEDS: PANTOPRAZOLE 40 MG/PACK PACK GT SCH (09:16)
[2020-12-04] MEDS: LEVOTHYROXINE SODIUM 75 MCG TABLET GT SCH (09:16)
[2020-12-04] MEDS: HYDROXYCHLOROQUINE 200 MG TABLET GT SCH (09:16)
[2020-12-04] MEDS: ZINC SULFATE 220 MG CAPSULE GT SCH (09:16)
[2020-12-04] MEDS: FERROUS SULFATE UDC 300 MG/5 ML UDC GT SCH (09:17)
[2020-12-04] MEDS: CARVEDILOL 12.5 MG TABLET GT SCH ×2 (09:20→20:52)
[2020-12-04] MEDS: PROSOURCE / PROSTAT (PYXIS) 30 ML UDC GT SCH ×3 (09:24→16:32)
--- NOTE | 2020-12-04 10:00 | NUR ---
Patient had hemodialysis today with 1500ml output, tolerated dialysis session well, appearsd comfortable bed, no apparent distress noted, will monitor closely for any changes.
[2020-12-04] MEDS: DAKINS QUARTER STRENGTH (0.125%) 480 ML BOTTLE TOP SCH (11:14)
[2020-12-04 12:00] VITALS: BP 134/60
[2020-12-04 16:00] VITALS: BP 169/69
[2020-12-04] MEDS ORDERED: hydrALAZINE HCL IV 20 MG VIAL ONE (16:31)
[2020-12-04] MEDS: hydrALAZINE HCL IV 20 MG VIAL IV PRN (16:32)
--- NOTE | 2020-12-04 18:50 | NUR ---
RN CLOSING NOTES Patient seen comfortably lying in bed, AO X2, able to mouth words, can make simple needs known and able to follow commands. Breathing even and unlabored, no SOB, no apparent distress noted, denies any pain or discomfort. All medications given via gtube per MD order, tolerating well. Gtube placement checked with auscultation and gastric residuals, remained patent, in place and intact during shift. All needs attended, kept clean and dry, call light left within reach, safety precautions maintained, patient has a 1:1 sitter, brakes locked, side rails up X 2, will endorse to next shift for continuity of care.
--- NOTE | 2020-12-04 18:50 | NUR ---
Patient for discharge today, report given to Imani (poolroom table attendant of [facility]) [phone], verbalize understanding and gratitude. Skin assessment was done and photos of skin was filed in patient's chart. final touch up painter time will be at 2100, will endorse to next shift for continuity of care.
[2020-12-04 20:00] VITALS: BP 151/66
[2020-12-04] MEDS: QUETIAPINE FUMARATE 25 MG TABLET GT SCH (21:17)
[2020-12-04] MEDS: ATORVASTATIN 10 MG TABLET GT SCH (21:17)
--- NOTE | 2020-12-04 22:45 | NUR ---
RN NOTES: PATIENT WAS ABOUT TO BE DISCHARGE TO FACILITY [facility] ARRIVED AT 2230 PATIENT KEPT ON REFUSING TO BE D/CAND VERBALIZED THAT SHED BE SEND TO [facility], UPON ASSESSMENT, PATIENT WAS A/O X4, NOT CONFUSED AND ABLE TO ANSWER QUESTION, CALLED FAMILY [facility]ÚL AND FATHER JEREMY LEFT MESSAGE, STILL AWAITING FOR REPLY, NOTIFY DOCTOR DIGITAL PHOTOGRAPHIC PRINTER DR SUBHASH DUNBAR AND MADE AWARE, DON AT [facility] WAS MADE AWARE, TO REMIND AND ENDORSE AM SHIFT ABOUT DIALYSIS AT 10AM ,PATIENT KEPT CLEAN AND DRY, ALL NEEDS MET , WILL CONTINUE TO MONITOR.
--- NOTE | 2020-12-04 23:34 | NUR ---
TEL RN OPENING NOTES: RECEIVED PATIENT PLACES IN BED COMFORTABLY, BED IN LOW POSITION, CALL LIGHTS WITHIN REACH, NO COMPLAIN OF PAIN AND DISCOMFORT AT THIS TIME,PATIENT ON VENT , ON TELE MONITORING SR-70, NO SOB NOTED, PATIENT HAS ORDER TO SUCTION NEEDED, ON G TUBE FEEDING WITH JEVITY 1.2 @55ML/HR INFUSING WELL, FLUSH WITH WATER Q6H, V/S ARE WNR, PATIENT HAS DIALYSIS PORT AT [facility] + WITH [facility] UPON PALPATION, EXPECTED TO BE D/C TONIGHT TO [facility], PATIENT KEPT CLEAN AND DRY, DUE MEDS GIVEN, ALL NEEDS MET, WILL CONTINUE TO MONITOR.
[2020-12-05] VITALS: BP 149/66
[2020-12-05 04:00] VITALS: BP 145/70
--- NOTE | 2020-12-05 07:30 | NUR ---
TEL RN OPENING NOTES RECEIVED PATIENT ON BED, AWAKE AND A/O X4. ON MECHANICAL VENT WITH NO SIGNS OF SOB. NOT IN DISTRESS. WITH NO COMPLAINTS OF PAIN OR DISCOMFORT AT THIS TIME. WITH IV ACCESS AT RIGHT UPPER ARM MIDLINE AND AT RIGHT HAND G20, BOTH SALINE LOCKED, INTACT AND PATENT. SAFETY MEASURES IN PLACED. CALL LIGHT WITHIN REACH. BED ON LOWEST AND LOCKED POSITION WITH SIDE RAILS UP X2.POSITION. ON TELE MONITORING CURRENTLY READING AT NSR-64BPM. PATIENT HAS AN ORDER TO SUCTION NEEDED, ON G TUBE FEEDING WITH JEVITY 1.2 @55ML/HR INFUSING WELL, FLUSH WITH WATER Q6H. PATIENT HAS DIALYSIS PORT AT [facility] + WITH BRUIT UPON PALPATION. WILL CONTINUE TO MONITOR.
--- NOTE | 2020-12-05 07:50 | NUR ---
RN CLOSING NOTES: PATIENT PLACE IN BED COMFORTABLY, AWAKE WITH NO COMPLAIN OF PAIN AND DISCOMFORT , ON G- TUBE FEEDING OF JEVETY 1.2 @55ML/HR, HOB AT 45 DEGREE ON MECH VENT NO RESP DISTRESS WAS OBSERVED, PRN SUCTION NEEDED, PATIENT KEPT CLEAN AND DRY, ALL NEEDS MET , WILL CONTINUE TO MONITOR.
[2020-12-05 08:00] VITALS: BP 166/67
[2020-12-05] MEDS: CARVEDILOL 12.5 MG TABLET GT SCH ×2 (09:29→21:37)
[2020-12-05] MEDS: FERROUS SULFATE UDC 300 MG/5 ML UDC GT SCH (09:29)
[2020-12-05] MEDS: PANTOPRAZOLE 40 MG/PACK PACK GT SCH (09:29)
[2020-12-05] MEDS: HYDROXYCHLOROQUINE 200 MG TABLET GT SCH (09:29)
[2020-12-05] MEDS: LEVOTHYROXINE SODIUM 75 MCG TABLET GT SCH (09:30)
[2020-12-05] MEDS: SERTRALINE HCL 50 MG TABLET GT SCH (09:30)
[2020-12-05] MEDS: ZINC SULFATE 220 MG CAPSULE GT SCH (09:30)
[2020-12-05] MEDS: DAKINS QUARTER STRENGTH (0.125%) 480 ML BOTTLE TOP SCH (09:56)
[2020-12-05] MEDS: PROSOURCE / PROSTAT (PYXIS) 30 ML UDC GT SCH ×3 (09:56→16:36)
[2020-12-05 12:00] VITALS: BP 142/60
[2020-12-05 16:00] VITALS: BP 150/52
[2020-12-05] MEDS: JEVITY 1.2 CAL 1,000 ML BOTTLE GT PRN (17:09)
--- NOTE | 2020-12-05 18:50 | NUR ---
TEL RN CLOSING NOTES PATIENT ON BED, AWAKE AND A/O X4. ON MECHANICAL VENT WITH NO SIGNS OF SOB. NOT IN DISTRESS. WITH NO COMPLAINTS OF PAIN OR DISCOMFORT AT THIS TIME. WITH IV ACCESS AT RIGHT UPPER ARM MIDLINE AND AT RIGHT HAND G20, BOTH SALINE LOCKED, INTACT AND PATENT. SAFETY MEASURES IN PLACED. CALL LIGHT WITHIN REACH. BED ON LOWEST AND LOCKED POSITION WITH SIDE RAILS UP X2.POSITION. ON TELE MONITORING CURRENTLY READING AT NSR-70BPM. PATIENT HAS AN ORDER TO SUCTION NEEDED, ON G TUBE FEEDING WITH JEVITY 1.2 @55ML/HR INFUSING WELL, FLUSH WITH WATER Q6H. PATIENT HAS DIALYSIS PORT AT [facility] + WITH BRUIT UPON PALPATION. WILL ENDORSE TO NEXT SHIFT FOR QUANG.
[2020-12-05 20:00] VITALS: BP 138/68
--- NOTE | 2020-12-05 20:32 | NUR ---
SOAP CHIPPER OPENING NOTES: RECEIVED PATIENT AWAKE IN BED, ON MECH VENT WITH NO RESP DISTRESS OBSERVED, ON G TUBE FEEDING WITH JEVITY 1.2 @55ML/HR INFUSING WELL, DIALYSIS PORT AT [facility] + WITH BRUIT, PATIENT IS A/O X4 ABLE TO MOUTH WORD WHEN COMMUNICATING, SUCTION NEEDED, ON TELE MONITORING SR-70, IV LINE AT ROMAN MIDLINE AND RT HAND #20 SL, PATIENT KEPT CLEAN AND DRY, ALL NEEDS MET, WILL CONTINUE TO MONITOR
[2020-12-05] MEDS: QUETIAPINE FUMARATE 25 MG TABLET GT SCH (21:38)
[2020-12-05] MEDS: ATORVASTATIN 10 MG TABLET GT SCH (21:38)
[2020-12-05] MEDS: LORAZEPAM 1 MG TABLET PEG PRN (23:26)
[2020-12-06] VITALS (8 sets, daily range): BP systolic 114–150; BP diastolic 53–75
--- NOTE | 2020-12-06 06:50 | NUR ---
RN CLOSING NOTES; PATIENT WAS PLACED IN BED COMFORTABLY, BED IN LOW POSITION, CALL LIGHTS WITHIN REACH, NO COMPLAIN OF PAIN AND DISCOMFORT AT THIS TIME, PATIENT ON G TUBE FEEDING OF JEVETY 1.2@ 55ML/HR INFUSING WELL, FLUSH WITH 250ML OF WATER EVERY 6 HOUR, WITH IV LINE AT ROMAN MIDLINE, AND RFO #20 SL, WITH LFA HD CATHETER + WITH BRUIT, PATIENT ON TELEMONITORING SR-65,SUCTION NEEDED, PATIENT KEPT CLEAN AND DRY, ALL NEEDS MET, ENDORSE TO INCOMING SHIFT.
[2020-12-06 07:13] LABS: LYMPHOCYTES # (AUTO) 0.7 K/uL (0.8-4.8); LYMPHOCYTES % (AUTO) 24.3 % (20.0-44.0); MEAN CORPUSCULAR HGB CONC 33 g/dl (31.0-36.0); MEAN CORPUSCULAR VOLUME 98 fL (82-100); MONOCYTES # (AUTO) 0.3 K/uL (0.1-1.30); MONOCYTES % (AUTO) 11.4 % (2.0-12.0); NEUTROPHILS # (AUTO) 1.9 K/uL (1.8-8.9); NEUTROPHILS % (AUTO) 64.3 % (43.0-81.0); PLATELET COUNT (AUTO) 133 K/uL (150-450); RED BLOOD CELL COUNT(AUTO) 2.06 MIL/uL (4.0-5.2); WHITE BLOOD COUNT (AUTO) 2.9 K/uL (4.3-11.0)
[2020-12-06 07:17] LABS: HEMATOCRIT 20 % (33-45); HEMOGLOBIN 6.7 g/dL (11.5-14.8)
[2020-12-06 07:36] LABS: CREATININE 2.5 mg/dL (0.6-1.3); PHOSPHORUS 4.1 mg/dL (2.5-4.9); POTASSIUM 4.5 mmol/L (3.5-5.1)
[2020-12-06 07:46] LABS: CALCIUM, SERUM 7.9 mg/dL (8.5-10.1)
--- NOTE | 2020-12-06 08:11 | NUR ---
TELE/RN OPENING NOTES; RECEIVED PATIENT IN BED, ASLEEP BUT EASILY AROUSABLE. ON MECHANICAL VENT. PATIENT ON G TUBE FEEDING OF JEVITY 1.2@ 55ML/HR INFUSING WELL, FLUSH WITH 250ML OF WATER EVERY 6 HOUR, WITH IV LINE AT ROMAN MIDLINE, AND RFO #20 SL, WITH LFA HD CATHETER + WITH BRUIT, PATIENT ON TELEMONITORING SR-65,SUCTION NEEDED. SAFETY PRECAUTIONS IN PLACED: BED LOCKED ON LOWEST POSITION, SIDE RAILS UPX3, CALL LIGHT WITHIN REACH. WILL CONTINUE TO MONITOR PATIENT.
[2020-12-06] MEDS ORDERED: LEVOTHYROXINE SODIUM 75 MCG TABLET GT SCH ×4 (09:00→10:14)
[2020-12-06] MEDS: FERROUS SULFATE UDC 300 MG/5 ML UDC GT SCH (09:44)
[2020-12-06] MEDS: ZINC SULFATE 220 MG CAPSULE GT SCH (09:44)
[2020-12-06] MEDS: HYDROXYCHLOROQUINE 200 MG TABLET GT SCH (09:46)
[2020-12-06] MEDS: SERTRALINE HCL 50 MG TABLET GT SCH (09:46)
[2020-12-06] MEDS: PANTOPRAZOLE 40 MG/PACK PACK GT SCH (09:46)
[2020-12-06] MEDS: CARVEDILOL 12.5 MG TABLET GT SCH ×2 (09:46→21:56)
[2020-12-06] MEDS ORDERED: LEVOTHYROXINE SODIUM 125 MCG TABLET ONE (09:49)
[2020-12-06] MEDS ORDERED: LEVOTHYROXINE SODIUM 50 MCG TABLET ONE (09:49)
[2020-12-06] MEDS ORDERED: LEVOTHYROXINE SODIUM 100 MCG TABLET GT SCH (10:07)
[2020-12-06] MEDS: LEVOTHYROXINE SODIUM 100 MCG TABLET GT SCH (10:18)
[2020-12-06] MEDS: LEVOTHYROXINE SODIUM 75 MCG TABLET GT SCH (10:19)
[2020-12-06] MEDS: PROSOURCE / PROSTAT (PYXIS) 30 ML UDC GT SCH ×3 (10:19→17:39)
[2020-12-06] MEDS: DAKINS QUARTER STRENGTH (0.125%) 480 ML BOTTLE TOP SCH (10:20)
[2020-12-06 13:23] LABS: EOSINOPHILS % (MANUAL) 2 % (0-4); LYMPHOCYTES % (MANUAL) 24 % (16-48); MONOCYTES % (MANUAL) 11 % (0-11.0); NEUTROPHILS % (MANUAL) 63 (42-76)
--- NOTE | 2020-12-06 15:31 | NUR ---
TELE/RN NOTES- BLOOD TRANSFUSION 1 BAG PRBC BLOOD TRANSFUSION STARTED BY DIALYSIS NURSE PER MD ORDER. V/S TAKEN AND RECORDED. WILL CONTINUE TO MONITOR.
--- NOTE | 2020-12-06 16:31 | NUR ---
MS/RN NOTES- BLOOD TRANSFUSION COMPLETED SUPERVISOR AIRCRAFT MAINTENANCE REPORTED THAT BLOOD TRANSFUSION IS COMPLETE. 1 BAG PRBC GIVEN WITH HEMODIALYSIS PER MD ORDER. NO S/S OF ADVERSE REACTION NOTED. V/S ALL WITHIN NORMAL LIMIT.
--- NOTE | 2020-12-06 19:30 | NUR ---
SECTION GANG WORKER OPENING NOTES: RECEIVED PATIENT SLEEP IN BED COMFORTABLY, AROUSABLE TO VERBAL STIMULI, ON TELE MONITORING WITH SR IN BED, BED IN LOW POSITION, CALL LIGHTS WITHIN REACH, NO COMPLAIN OF PAIN AND DISCOMFORT AT THIS TIME, PATIENT ON MECH VENT NO RESP DISTRESS OR SOB NOTED ,ON G TUBE FEEDING OF JEVITY 1.2 @55ML PER HOUR INFUSING WELL, 344 LEVEL. 1 PRBC TRANFUSE ON MONITORING, NO COMPLAIN OF PAIN AND DISCOMFORT AT THIS TIME, KEEP CLEAN AND DRY, WILL CONTINUE TO MONITOR.
--- NOTE | 2020-12-06 19:38 | NUR ---
TELE/RN CLOSING NOTES: PATIENT IN BED, ALERT, MOUTHING WORDS. ON TELE MONITORING WITH SR 69. BED IN LOW POSITION, CALL LIGHTS WITHIN REACH, NO COMPLAIN OF PAIN AND DISCOMFORT AT THIS TIME, PATIENT ON MECH VENT NO RESP DISTRESS OR SOB NOTED ,ON G TUBE FEEDING OF JEVITY 1.2 @55ML PER HOUR INFUSING WELL. HEMODIALYSIS DONE TODAY, TRANSFUSED 1 PRBC WITH DIALYSIS, NO S/S OF ADVERSE REACTION NOTED. ALL NEEDS MET. WILL ENDORSE TO THE NEXT SHIFT FOR QUANG.
[2020-12-06] MEDS: QUETIAPINE FUMARATE 25 MG TABLET GT SCH (21:57)
[2020-12-06] MEDS: ATORVASTATIN 10 MG TABLET GT SCH (21:57)
[2020-12-07 04:48] VITALS: BP 141/52
[2020-12-07] MEDS: JEVITY 1.2 CAL 1,000 ML BOTTLE GT PRN (06:14)
--- NOTE | 2020-12-07 07:00 | NUR ---
RAG ROOM SUPERVISOR CLOSING NOTES: PATIENT WAS AWAKE IN BED NO COMPLAIN OF PAIN AND DISCOMFORT, ON MECH VENT, NO SOB OR ANY RESPIRATORY DISTRESS WAS OBSERVED, PATIENT HAS ROMAN MID LINE INFUSING WELL, ON G TUBE FEEDING @55ML.HR, SUCTION NEEDED, HOB AT 45 DEGREE AT ALL TIMES, BED IN LOW POSITION, CALL LIGHTS WITHIN REACH, ENDORSE TO INCOMING SHIFT.
--- NOTE | 2020-12-07 07:10 | NUR ---
RN NOTES: PATIENT G TUBE WAS ACCIDENTALLY DISLODGE, NOTIFY DR CULLEN, AND ORDER TO PLACE [place] CATHETER WITH SALINE LOCK TO KEEP IT OPEN , ENDORSE TO INCOMING NURSE
[2020-12-07] MEDS: LEVOTHYROXINE SODIUM 100 MCG TABLET GT SCH (07:30)
[2020-12-07] MEDS: LEVOTHYROXINE SODIUM 75 MCG TABLET GT SCH (07:30)
[2020-12-07 08:00] VITALS: BP 156/73
[2020-12-07] MEDS: ZINC SULFATE 220 MG CAPSULE GT SCH (09:00)
[2020-12-07] MEDS: PANTOPRAZOLE 40 MG/PACK PACK GT SCH (09:00)
[2020-12-07] MEDS: PROSOURCE / PROSTAT (PYXIS) 30 ML UDC GT SCH ×3 (09:00→16:26)
[2020-12-07] MEDS: CARVEDILOL 12.5 MG TABLET GT SCH ×2 (09:00→21:16)
[2020-12-07] MEDS: SERTRALINE HCL 50 MG TABLET GT SCH (09:00)
[2020-12-07] MEDS: FERROUS SULFATE UDC 300 MG/5 ML UDC GT SCH (09:00)
[2020-12-07] MEDS: HYDROXYCHLOROQUINE 200 MG TABLET GT SCH (09:00)
[2020-12-07 09:10] LABS: BASOPHILS % (AUTO) 0.5 % (0.0-2.0); EOSINOPHILS % (AUTO) 0.6 % (0.0-6.0); HEMATOCRIT 23 % (33-45); HEMOGLOBIN 7.5 g/dL (11.5-14.8); LYMPHOCYTES # (AUTO) 0.5 K/uL (0.8-4.8); LYMPHOCYTES % (AUTO) 21.4 % (20.0-44.0); MEAN CORPUSCULAR HGB CONC 34 g/dl (31.0-36.0); MEAN CORPUSCULAR VOLUME 95 fL (82-100); MONOCYTES # (AUTO) 0.5 K/uL (0.1-1.30); MONOCYTES % (AUTO) 19.1 % (2.0-12.0); NEUTROPHILS # (AUTO) 1.4 K/uL (1.8-8.9); NEUTROPHILS % (AUTO) 58.4 % (43.0-81.0); PLATELET COUNT (AUTO) 111 K/uL (150-450); RED BLOOD CELL COUNT(AUTO) 2.36 MIL/uL (4.0-5.2); WHITE BLOOD COUNT (AUTO) 2.4 K/uL (4.3-11.0)
[2020-12-07 09:31] LABS: CALCIUM, SERUM 7.7 mg/dL (8.5-10.1); CREATININE 1.8 mg/dL (0.6-1.3); PHOSPHORUS 2.8 mg/dL (2.5-4.9); POTASSIUM 3.6 mmol/L (3.5-5.1)
[2020-12-07 10:42] LABS: BAND % (MANUAL) 5 % (0.0-5.0); LYMPHOCYTES % (MANUAL) 21 % (16-48); MONOCYTES % (MANUAL) 20 % (0-11.0); NEUTROPHILS % (MANUAL) 54 (42-76)
[2020-12-07 12:00] VITALS: BP 145/66
[2020-12-07] MEDS: LIOTHYRONINE SODIUM (25 MCG) 25 MCG TABLET PO SCH (13:00)
[2020-12-07] MEDS ORDERED: DIATR MEGLU/DIATRIZOATE SODIUM 30 ML BOTTLE (GASTROGRAPHIN) ONE (14:36)
[2020-12-07 16:00] VITALS: BP 163/68
[2020-12-07] MEDS: DAKINS QUARTER STRENGTH (0.125%) 480 ML BOTTLE TOP SCH (16:25)
[2020-12-07 20:00] VITALS: BP 149/70
--- NOTE | 2020-12-07 20:00 | NUR ---
electrophysiology scientist Opening Notes Patient was last seen awake in bed resting. Patient is A/OX4. Patient's on a mechanical vent with no respiratory distress noted. Patient's connected to a tele monitor with no cardiac distress noted. Patient has IV sites on her ROMAN midline and a saline lock on her RFA gauge#20, which are both intact, patent, and flushing well. Patient's in no acute distress at this time. Safety precautions implemented: Bed locked, bed alarm on, side rails upx3, and call light within reach of the patient. Will continue to monitor the patient.
[2020-12-07] MEDS: ATORVASTATIN 10 MG TABLET GT SCH (21:16)
[2020-12-07] MEDS: LORAZEPAM 1 MG TABLET PEG PRN (21:17)
[2020-12-07] MEDS: QUETIAPINE FUMARATE 25 MG TABLET GT SCH (22:23)
[2020-12-08] VITALS: BP 138/67
[2020-12-08] MEDS: LORAZEPAM 1 MG TABLET PEG PRN ×3 (03:29→22:16)
[2020-12-08 04:00] VITALS: BP 129/49
--- NOTE | 2020-12-08 07:10 | NUR ---
STRAP MAKING MACHINE OPERATOR OPENING NOTES: RECEIVED PATIENT SLEEP IN BED COMFORTABLY, AROUSABLE TO VERBAL STIMULI, ON TELE MONITORING WITH SR IN BED, BED IN LOW POSITION. PATIENT ON MECH VENT NO RESP DISTRESS OR SOB NOTED. ON G TUBE FEEDING OF JEVITY 1.2 @55ML PER HOUR INFUSING WELL. WITH ROMAN MIDLINE CATHETER ON SALINE LOCK. WITH LEFT ARM AV FISTULA FOR HD ACCESS. NO COMPLAIN OF PAIN AND DISCOMFORT AT THIS TIME, KEEP CLEAN AND DRY, WILL CONTINUE TO MONITOR. CALL LIGHTS WITHIN REACH, NO COMPLAIN OF PAIN AND DISCOMFORT AT THIS TIME. BED AT LOWEST AND LOCKED POSITION. WILL CONTINUE TO MONITOR PATIENT.
[2020-12-08 08:00] VITALS: BP 155/85
[2020-12-08] MEDS: LEVOTHYROXINE SODIUM 100 MCG TABLET GT SCH (09:52)
[2020-12-08] MEDS: FERROUS SULFATE UDC 300 MG/5 ML UDC GT SCH (09:52)
[2020-12-08] MEDS: SERTRALINE HCL 50 MG TABLET GT SCH (09:53)
[2020-12-08] MEDS: HYDROXYCHLOROQUINE 200 MG TABLET GT SCH (09:53)
[2020-12-08] MEDS: ZINC SULFATE 220 MG CAPSULE GT SCH (09:54)
[2020-12-08] MEDS: LIOTHYRONINE SODIUM (25 MCG) 25 MCG TABLET PO SCH (09:54)
[2020-12-08] MEDS: PANTOPRAZOLE 40 MG/PACK PACK GT SCH (09:54)
[2020-12-08] MEDS: CARVEDILOL 12.5 MG TABLET GT SCH ×2 (09:54→21:07)
[2020-12-08] MEDS: LEVOTHYROXINE SODIUM 75 MCG TABLET GT SCH (10:20)
[2020-12-08] MEDS: PROSOURCE / PROSTAT (PYXIS) 30 ML UDC GT SCH ×3 (10:20→16:32)
[2020-12-08] MEDS: DAKINS QUARTER STRENGTH (0.125%) 480 ML BOTTLE TOP SCH (10:21)
--- NOTE | 2020-12-08 11:30 | NUR ---
TELE TN NOTE PATIENT SEEN BY DR. DYKES.
[2020-12-08] MEDS: JEVITY 1.2 CAL 1,000 ML BOTTLE GT PRN (14:52)
[2020-12-08 16:00] VITALS: BP 148/60
[2020-12-08 17:10] LABS: BASOPHILS % (AUTO) 0.6 % (0.0-2.0); EOSINOPHILS % (AUTO) 0.2 % (0.0-6.0); HEMATOCRIT 25 % (33-45); LYMPHOCYTES # (AUTO) 0.6 K/uL (0.8-4.8); LYMPHOCYTES % (AUTO) 19.5 % (20.0-44.0); MEAN CORPUSCULAR HGB CONC 33 g/dl (31.0-36.0); MEAN CORPUSCULAR VOLUME 96 fL (82-100); MONOCYTES # (AUTO) 0.6 K/uL (0.1-1.30); MONOCYTES % (AUTO) 22.4 % (2.0-12.0); NEUTROPHILS # (AUTO) 1.6 K/uL (1.8-8.9); NEUTROPHILS % (AUTO) 57.3 % (43.0-81.0); PLATELET COUNT (AUTO) 138 K/uL (150-450); RED BLOOD CELL COUNT(AUTO) 2.56 MIL/uL (4.0-5.2); WHITE BLOOD COUNT (AUTO) 2.8 K/uL (4.3-11.0)
[2020-12-08 17:30] LABS: CALCIUM, SERUM 8.1 mg/dL (8.5-10.1); CREATININE 1.6 mg/dL (0.6-1.3); MAGNESIUM 1.9 mg/dL (1.8-2.4); PHOSPHORUS 2.4 mg/dL (2.5-4.9); POTASSIUM 3.6 mmol/L (3.5-5.1)
--- NOTE | 2020-12-08 19:00 | NUR ---
ASSOCIATE EMBALMER/FUNERAL DIRECTOR CLOSING NOTES: PATIENT SLEEP IN BED COMFORTABLY, AROUSABLE TO VERBAL STIMULI, ON TELE MONITORING WITH SR IN BED, BED IN LOW POSITION. PATIENT ON MECH VENT NO RESP DISTRESS OR SOB NOTED. ON G TUBE FEEDING OF JEVITY 1.2 @55ML PER HOUR INFUSING WELL. WITH ROMAN MIDLINE CATHETER ON SALINE LOCK. WITH LEFT ARM AV FISTULA FOR HD ACCESS. NO COMPLAIN OF PAIN AND DISCOMFORT AT THIS TIME, KEEP CLEAN AND DRY, WILL CONTINUE TO MONITOR. CALL LIGHTS WITHIN REACH, NO COMPLAIN OF PAIN AND DISCOMFORT AT THIS TIME. BED AT LOWEST AND LOCKED POSITION. WILL ENDORSE PATIENT FOR CONTINUITY OF CARE.
[2020-12-08 20:00] VITALS: BP 145/65
--- NOTE | 2020-12-08 20:04 | NUR ---
GLASS INSTALLER OPENING NOTES PATIENT WAS LAST SEEN AWAKE IN BED RESTING. PATIENT'S ALERT AND ORIENTEDX4. PATIENT'S ON A MECH VENT WITH NO RESP DISTRESS NOTED. PATIENT'S CONNECTED TO A TELE MONITOR WITH NO CARDIAC DISTRESS NOTED. PATIENT'S ON A G TUBE FEEDING OF JEVITY 1.2 @55ML PER HOUR. PATIENT IS TOLERATING THE FEEDING WELL. PATIENT HAS A ROMAN MIDLINE, IV ACCESS ON RFA GAUGE 320, AND A LEFT ARM AV FISTULA FOR HD ACCESS. PATIENT'S IN NO ACUTE DISTRESS AT THIS TIME. SAFETY MEASURES IN PLACE: BED LOCKED, SIDE RAILS UPX3, BED ALARM ON, AND CALL LIGHT WITHIN EASY REACH OF THE PATIENT. WILL CONTINUE TO MONITOR THE PATIENT.
[2020-12-08] MEDS: ATORVASTATIN 10 MG TABLET GT SCH ×2 (21:06→22:17)
[2020-12-08] MEDS: QUETIAPINE FUMARATE 25 MG TABLET GT SCH (22:40)
[2020-12-09] VITALS: BP 131/51
[2020-12-09 04:00] VITALS: BP 144/63
--- NOTE | 2020-12-09 07:30 | NUR ---
RN NOTES PATIENT SEEN IN BED RESTING, EYES CLOSED, ABLE TO BE AWAKENED. ALERT AND ORIENTED X3, NON-VERBAL BUT ABLE TO MOUTH WORDS IN [place]. ON TRACH/MECH VENT WITH NO RESP DISTRESS NOTED, SETTINGS TOLERATED. ON TELE MONITOR WITH NO CARDIAC DISTRESS NOTED. GT IS INTACT AND PATENT, FEEDING OF JEVITY 1.2 @55ML PER HOUR. ROMAN MIDLINE AND IV ACCESS ON RFA GAUGE #20 INTACT AND PATENT; LEFT ARM AV FISTULA FOR HD ACCESS W/ DRESSING C/D/I. SAFETY MEASURES IN PLACE: BED LOCKED, SIDE RAILS UPX3, BED ALARM ON, AND CALL LIGHT WITHIN EASY REACH OF THE PATIENT. WILL CONTINUE TO MONITOR.
[2020-12-09 08:00] VITALS: BP 143/66
[2020-12-09] MEDS: FERROUS SULFATE UDC 300 MG/5 ML UDC GT SCH (09:42)
[2020-12-09] MEDS: SERTRALINE HCL 50 MG TABLET GT SCH (09:43)
[2020-12-09] MEDS: LIOTHYRONINE SODIUM (25 MCG) 25 MCG TABLET PO SCH (09:43)
[2020-12-09] MEDS: ZINC SULFATE 220 MG CAPSULE GT SCH (09:43)
[2020-12-09] MEDS: PANTOPRAZOLE 40 MG/PACK PACK GT SCH (09:44)
[2020-12-09] MEDS: LEVOTHYROXINE SODIUM 100 MCG TABLET GT SCH (09:45)
[2020-12-09] MEDS: LEVOTHYROXINE SODIUM 75 MCG TABLET GT SCH (09:45)
[2020-12-09] MEDS: CARVEDILOL 12.5 MG TABLET GT SCH ×2 (09:46→21:44)
[2020-12-09] MEDS: HYDROXYCHLOROQUINE 200 MG TABLET GT SCH (09:46)
[2020-12-09] MEDS: PROSOURCE / PROSTAT (PYXIS) 30 ML UDC GT SCH ×3 (09:47→16:38)
[2020-12-09] MEDS: DAKINS QUARTER STRENGTH (0.125%) 480 ML BOTTLE TOP SCH (09:48)
[2020-12-09 16:00] VITALS: BP 137/65
--- NOTE | 2020-12-09 18:48 | NUR ---
RN NOTES PATIENT IS IN BED RESTING, AWAKE AND RESPONSIVE. ALERT AND ORIENTED X3, NON-VERBAL, MOUTH WORDS IN [place]. ON TRACH/MECH VENT WITH NO RESP DISTRESS NOTED, SETTINGS STILL TOLERATED, NO RESPIRATORY DISTRESS. ON TELE MONITOR, READING OF SR, NO CARDIAC DISTRESS NOTED. GT IS INTACT AND PATENT, FEEDING OF JEVITY 1.2 @ 55ML/HR, NO RESIDUAL NOTED. ROMAN MIDLINE AND IV ACCESS ON RFA GAUGE #20 INTACT AND PATENT; LEFT ARM AV FISTULA FOR HD ACCESS W/ DRESSING C/D/I. SAFETY MEASURES MAINTAINED. WILL ENDORSE TO [employer] CONSOLE OPERATOR TRACK RN FOR QUANG.
[2020-12-09 20:00] VITALS: BP 148/69
--- NOTE | 2020-12-09 20:09 | NUR ---
SENIOR QUALITY METHODS SPECIALIST NOTE RECEIVED PATIENT IN BED WITH EYES OPEN. NO S/S OF APPARENT DISTRESS IN TRACH/VENT. DENIES PAIN. G-TUBE RUNNING JEVITY 1.2 @ 55ML/HR. NO IV FLUID RUNNING AT THIS TIME. WILL CONTINUE TO MONITOR PATIENT.
[2020-12-09] MEDS: ATORVASTATIN 10 MG TABLET GT SCH (22:04)
[2020-12-09] MEDS: QUETIAPINE FUMARATE 25 MG TABLET GT SCH (22:04)
[2020-12-09] MEDS: LORAZEPAM 1 MG TABLET PEG PRN (22:26)
[2020-12-10] VITALS: BP 117/68
[2020-12-10 04:00] VITALS: BP 158/69
[2020-12-10] MEDS: JEVITY 1.2 CAL 1,000 ML BOTTLE GT PRN (04:27)
--- NOTE | 2020-12-10 06:53 | NUR ---
BUSINESS DEVELOPMENT INTERN CLOSING NOTE PATIENT IN BED A/OX3. NO S/S OF DISTRESS VIA TRACH/ VENT DEPENDENT. DENIES PAIN. ABLE TO MAKE NEEDS KNOWN. ALL NEEDS ATTENDED. ALL SCHED MEDS ADMINISTERED. PATIENT SUCTIONED. DRESSING CHANGED. G-TUBE FEEDING ON HOLD-- WILL START @ 1133. NO IV FLUIDS RUNNING AT THIS TIME. HD TODAY. NO SIGNIFICANT CHANGE SINCE LAST SHIFT. WILL ENDORSE CARE TO MORNING SHIFT RN FOR CONTINUATION OF CARE.
[2020-12-10] MEDS: LEVOTHYROXINE SODIUM 75 MCG TABLET GT SCH (07:38)
[2020-12-10] MEDS: LEVOTHYROXINE SODIUM 100 MCG TABLET GT SCH (07:38)
[2020-12-10] MEDS: LIOTHYRONINE SODIUM (25 MCG) 25 MCG TABLET PO SCH (07:38)
[2020-12-10 08:00] VITALS: BP 140/74
[2020-12-10] MEDS: PANTOPRAZOLE 40 MG/PACK PACK GT SCH (09:10)
[2020-12-10] MEDS: FERROUS SULFATE UDC 300 MG/5 ML UDC GT SCH (09:10)
[2020-12-10] MEDS: HYDROXYCHLOROQUINE 200 MG TABLET GT SCH (09:10)
[2020-12-10] MEDS: ZINC SULFATE 220 MG CAPSULE GT SCH (09:10)
[2020-12-10] MEDS: SERTRALINE HCL 50 MG TABLET GT SCH (09:11)
[2020-12-10] MEDS: PROSOURCE / PROSTAT (PYXIS) 30 ML UDC GT SCH ×3 (09:11→17:35)
[2020-12-10] MEDS: CARVEDILOL 12.5 MG TABLET GT SCH ×2 (09:11→21:00)
[2020-12-10] MEDS: DAKINS QUARTER STRENGTH (0.125%) 480 ML BOTTLE TOP SCH (09:22)
--- NOTE | 2020-12-10 12:50 | NUR ---
RN NOTES DIALYSIS NURSE AT BEDSIDE FOR HD TODAY.
--- NOTE | 2020-12-10 15:00 | NUR ---
RN NOTES PER HD NURSE, 1L OUTPUT.
[2020-12-10 16:00] VITALS: BP 147/73
--- NOTE | 2020-12-10 16:28 | NUR ---
RN NOTES MIGNON, SON AND DTR, CURRENTLY AT BEDSIDE VISITING THE PATIENT. YUMI, RN RESOURCE NURSE, AT BEDSIDE DISCUSSING CASE W/ SON AND DTR.
--- NOTE | 2020-12-10 18:17 | NUR ---
RN NOTES CALLED [facility] ([phone]) TO GIVE REPORT BUT UNABLE TO SPEAK W/ SOMEONE FROM FACILITY MAILBOX IS FULL.
--- NOTE | 2020-12-10 19:20 | NUR ---
RN NOTES COVID SWAB SPECIMEN OBTAINED AND SENT TO LAB.
--- NOTE | 2020-12-10 19:30 | NUR ---
RN NOTES BEDSIDE ENDORSEMENT DONE W/ SOCIOLOGY ADJUNCT INSTRUCTOR RN. PATIENT RESTING IN BED W/ FAMILY AT BEDSIDE. TRIED TO CALL FOR REPORT BUT NO ANSWER FROM [facility]. EXITCARE INSTRUCTIONS PRINTED W/ MEDRECON. PATIENT UNABLE TO SIGN; FORM SIGNED BY RN AND WITNESSED BY ANOTHER NURSE EVER. PATIENT REFUSED TO TURN EARLIER FOR PHOTO OF SKIN ISSUE TO BE TAKEN BUT WOUND CARE WAS DONE. SAFETY MEASURES MAINTAINED. SUPERVISOR SALVAGE AWARE OF DISCHARGE.
--- NOTE | 2020-12-10 19:50 | NUR ---
RN NOTES SPOKE W/ KLAUS FROM LAB; JORGE SPECIMEN RECEIVED.
--- NOTE | 2020-12-10 20:00 | NUR ---
CONTINUITY OF CARE Patient awake. Trach intact, on mechanical vent. Suction secretion. Patient to be dc today. Per GELACIO Villalobos, called was made to [facility] for report but was unable to leave message d/t full. LONNIE Bell was informed per GELACIO Villalobos and patient still be going for dc today, awaiting Covid rapid test result. automatic machines supervisor time 2100 tonight.
[2020-12-10 20:43] VITALS: BP 152/67
[2020-12-10 21:00] VITALS: BP 152/67
[2020-12-10] MEDS: QUETIAPINE FUMARATE 25 MG TABLET GT SCH (21:01)
[2020-12-10] MEDS: ATORVASTATIN 10 MG TABLET GT SCH (21:01)
--- NOTE | 2020-12-10 21:39 | NUR ---
DISCHARGED Transport arrived. Patient remains in stable VS. Covid test rapid resulted negative as of today 12/10/20. DC packet given to the ambulance staff for facility copies. Patient left hosp via ambulance with respiratory therapy.
== END 2020-12-10 21:42 | DRG 130 ==
LOC: ER 12:04 → TELE1 18:01 → TELE 11-27 06:09
PROVIDERS: ADMIT Internal Medicine
PROC: 5A1955Z Respiratory Ventilation, Greater than 96 Consecutive Hours (ICD-10-PCS; principal; 2020-11-21)
PROC: 5A1D70Z Performance of Urinary Filtration, Intermittent, Less than 6 Hours Per Day (ICD-10-PCS; 2020-11-22)
PROC: 0W9B3ZZ Drainage of Left Pleural Cavity, Percutaneous Approach (ICD-10-PCS; 2020-11-24)
PROC: 0JB70ZZ Excision of Back Subcutaneous Tissue and Fascia, Open Approach (ICD-10-PCS; 2020-11-25)
PROC: 0D20XUZ Change Feeding Device in Upper Intestinal Tract, External Approach (ICD-10-PCS; 2020-12-03)
PROC: 30233N1 Transfusion of Nonautologous Red Blood Cells into Peripheral Vein, Percutaneous Approach (ICD-10-PCS; 2020-12-06)
DX: J15.6 Pneumonia due to other Gram-negative bacteria (principal); G93.41 Metabolic encephalopathy; L89.154 Pressure ulcer of sacral region, stage 4; D69.6 Thrombocytopenia, unspecified; J96.20 Acute and chronic respiratory failure, unspecified whether with hypoxia or hypercapnia; I13.2 Hypertensive heart and chronic kidney disease with heart failure and with stage 5 chronic kidney disease, or end stage renal disease; I95.3 Hypotension of hemodialysis; D63.1 Anemia in chronic kidney disease; E87.1 Hypo-osmolality and hyponatremia; F33.1 Major depressive disorder, recurrent, moderate; E86.9 Volume depletion, unspecified; N18.6 End stage renal disease; R18.8 Other ascites; Z20.822 Contact with and (suspected) exposure to COVID-19; Z99.11 Dependence on respirator [ventilator] status; R13.10 Dysphagia, unspecified; Z99.2 Dependence on renal dialysis; Z79.899 Other long term (current) drug therapy; I25.2 Old myocardial infarction; E03.9 Hypothyroidism, unspecified; M32.9 Systemic lupus erythematosus, unspecified; Z79.51 Long term (current) use of inhaled steroids; Y95 Nosocomial condition; M89.9 Disorder of bone, unspecified; J90 Pleural effusion, not elsewhere classified; E87.6 Hypokalemia; E87.5 Hyperkalemia; K94.23 Gastrostomy malfunction; Y83.3 Surgical operation with formation of external stoma as the cause of abnormal reaction of the patient, or of later complication, without mention of misadventure at the time of the procedure; Y82.8 Other medical devices associated with adverse incidents; Y92.89 Other specified places as the place of occurrence of the external cause
CPT/HCPCS: 31720; 36410; 36415; 71045-TC; 74018; 80048-TC; 80053-TC; 80061-TC; 80076-TC; 80170-TC; 80202-TC; 82533; 82962-TC; 83540-TC; 83605-TC; 83690-TC; 83735-TC; 84100-TC; 84132-TC; 84439-TC; 84443-TC; 84481; 84702-TC; 85025-TC; 85610-TC; 86706; 86850-TC; 87040-TC; 87070-TC; 87081-TC; 87340; 89051-TC; 90935-TC; 93307-TC; 94003-TC; 94760-TC; 94762-TC; 94799-TC; 99082-TC; A4216; A4217; A4623; A6253; A6403; A7526; A9563; C9113; G0378; J0360; J0885; J1580; J1815; J1953; J2185; J2405; J2543; J3370; J3480; J7030; J7050; J7060; P9016; P9047; Q9963; U0003